=== PATIENT | female | born 1945 | race Caucasian/White ===

== ENCOUNTER 2022-04-17 10:49 | Outpatient (CLI) | payer MEDICARE, BC, SELFPAY | END 2022-04-17 10:50 | disposition home or self-care (01) | LOC: NUTRITION 10:52 | PROVIDERS: PCP Family Medicine; Visit Provider Family Medicine | DX: E66.9 Obesity, unspecified (principal); Z71.3 Dietary counseling and surveillance | CPT/HCPCS: 99211 ==

== ENCOUNTER 2022-05-22 10:57 | Outpatient (CLI) | payer MEDICARE, BC, SELFPAY ==
[2022-05-22 12:07] VITALS: BMI 34.0
== END 2022-05-22 10:58 | disposition home or self-care (01) ==
LOC: NUTRITION 10:59
PROVIDERS: PCP Family Medicine
DX: E66.9 Obesity, unspecified (principal); Z71.3 Dietary counseling and surveillance
CPT/HCPCS: 99211

== ENCOUNTER 2022-06-26 10:49 | Outpatient (CLI) | payer MEDICARE, BC, SELFPAY ==
[2022-06-26 11:46] VITALS: BMI 34.2
== END 2022-06-26 10:50 | disposition home or self-care (01) ==
LOC: NUTRITION 10:49
PROVIDERS: PCP Family Medicine
DX: E66.9 Obesity, unspecified (principal); Z71.3 Dietary counseling and surveillance
CPT/HCPCS: 99211

== ENCOUNTER 2022-07-17 11:03 | Outpatient (CLI) | payer MEDICARE, BC, SELFPAY ==
[2022-07-17 11:40] VITALS: BMI 34.5
== END 2022-07-17 11:04 | disposition home or self-care (01) ==
LOC: NUTRITION 11:04
PROVIDERS: PCP Family Medicine
DX: E66.9 Obesity, unspecified (principal); Z71.3 Dietary counseling and surveillance
CPT/HCPCS: 99211

== ENCOUNTER 2022-08-14 10:50 | Outpatient (CLI) | payer MEDICARE, BC, SELFPAY ==
[2022-08-14 11:37] VITALS: BMI 33.6
== END 2022-08-14 10:51 | disposition home or self-care (01) ==
PROVIDERS: PCP Family Medicine; Visit Provider Dietitian, Registered
DX: E66.9 Obesity, unspecified (principal); Z71.3 Dietary counseling and surveillance
CPT/HCPCS: 99211

== ENCOUNTER 2022-10-17 10:48 | Outpatient (CLI) | payer MEDICARE, BC, SELFPAY ==
[2022-10-17 11:38] VITALS: BMI 34.3
== END 2022-10-17 10:49 | disposition home or self-care (01) ==
LOC: NUTRITION 10:50
PROVIDERS: PCP Family Medicine; Visit Provider Dietitian, Registered
DX: E66.9 Obesity, unspecified (principal); Z71.3 Dietary counseling and surveillance
CPT/HCPCS: 99211

== ENCOUNTER 2022-11-28 12:00 | Outpatient (CLI) | payer MEDICARE, BC, SELFPAY ==
[2022-11-28 14:06] LABS: Chloride* 105 mmol/L (96-114); Potassium* 4.7 mmol/L (3.6-5.1); Sodium* 142 mmol/L (135-149)
[2022-11-28 14:08] LABS: Creatinine* 0.6 mg/dL (0.5-1.5); Estimated Glomerular Filt Rate 92 ml/min
[2022-11-28 14:09] LABS: Blood Urea Nitrogen* 21 mg/dL (7-30); Carbon Dioxide* 31 mmol/L (20-32); Glucose* 104 mg/dL (60-115)
== END 2022-11-28 12:01 | disposition home or self-care (01) ==
PROVIDERS: PCP Family Medicine; Visit Provider Family Medicine
DX: I10 Essential (primary) hypertension (principal); E03.9 Hypothyroidism, unspecified
CPT/HCPCS: 80048; 84443

== ENCOUNTER 2023-03-26 08:50 | Outpatient (CLI) | payer MEDICARE, BC, SELFPAY ==
--- OUTSIDE RECORDS SUMMARY | 2023-03-26 08:53 | XMS_ITS | Continuity of Care Document ---
Author Name Unknown Organization Z [facility] Address [address] [place] [address] Phone Care Team Providers Care Life Skills Teacher Name Role Phone Unavailable Unavailable Unavailable Procedures Procedure Date Office/outpatient visit,[facility] 2007 Advance Directives Directive Yes / No Effective Date File Name No Information Encounters Encounter Description Practice Location Reason(s) For Visit Diagnoses Date Provider Providers Copied on Encounter Office/outpat ient visit,[facility], [facility], [address], [place], [address], [place] tel:[phone] [facility] [employer] No Information 5200 8 No Information Family History Family Member Type Diagnosis Age At Onset No Information Payers Payer name Insurance type Covered green party ID Authoriza tion(s) [facility] [id number] Social History Type Description Quantity Date Captured Comments Sex Female Smoking Status No Information Chief Complaint And Reason For Visit No Information Reason For Referral Reason For Referral No Information Plan Of Treatment Date Type Action Status No Information History Of Present Illness Encounter Date Complaint History Of Prese nt Illness No Information Functional Status Date Functional Assessmen t No Information Instructions Date Instruction Additional Infor mation No Information Assessments Type Assessment Date No Information Patient Care Teams Name Effective Dates (start - stop) Status Members No Information
[2023-03-26 09:49] VITALS: BMI 35.0
== END 2023-03-26 08:51 | disposition home or self-care (01) ==
LOC: NUTRITION 08:51
PROVIDERS: PCP Family Medicine; Visit Provider Family Medicine
DX: E66.9 Obesity, unspecified (principal); Z71.3 Dietary counseling and surveillance
CPT/HCPCS: 99211

== ENCOUNTER 2023-04-10 10:50 | Outpatient (CLI) | payer MEDICARE, BC, SELFPAY ==
--- OUTSIDE RECORDS SUMMARY | 2023-04-10 10:53 | XMS_ITS | Continuity of Care Document ---
Author Name Unknown Organization Z [facility] Address [address] [place] [address] Phone Care Team Providers Care Finishing Range Supervisor Name Role Phone Unavailable Unavailable Unavailable Procedures Procedure Date Office/outpatient visit,[facility] 2007 Advance Directives Directive Yes / No Effective Date File Name No Information Encounters Encounter Description Practice Location Reason(s) For Visit Diagnoses Date Provider Providers Copied on Encounter Office/outpat ient visit,[facility], [facility], [address], [place], [address], [place] tel:[phone] [facility] [employer] No Information 5200 8 No Information Family History Family Member Type Diagnosis Age At Onset No Information Payers Payer name Insurance type Covered constitution party ID Authoriza tion(s) [facility] [id number] Social History Type Description Quantity Date Captured [...]
[2023-04-10 14:09] VITALS: BMI 34.2
== END 2023-04-10 10:51 | disposition home or self-care (01) ==
LOC: NUTRITION 10:51
PROVIDERS: PCP Family Medicine; Visit Provider Family Medicine
DX: E66.9 Obesity, unspecified (principal); Z71.3 Dietary counseling and surveillance
CPT/HCPCS: 99211

== ENCOUNTER 2023-05-05 13:13 | Emergency (ER) | payer MEDICARE, BC, SELFPAY ==
[2023-05-05] VITALS (25 sets, daily range): BP systolic 95–150; BP diastolic 57–73; PULSE 59–79; RESP 16–17; TEMP 36.5; O2SAT 92–99; BMI 36.4
--- NOTE | 2023-05-05 13:53 | CRLHL7_ITS ---
For Patients: As a result of the Cures Act, medical imaging exams and procedure reports are released immediately into your electronic medical record. You may view this report before your referring provider. If you have questions, please contact your health care provider. INDICATION: Syncope. TECHNIQUE: Chest 2 views. COMPARISON: None. FINDINGS: Cardiovascular and mediastinum: Cardiomediastinal silhouette is within normal limits Lungs and pleural spaces: Lungs are clear. No sign of pleural effusion. No pneumothorax. Bones and soft tissues: Unremarkable for age. IMPRESSION: No acute or significant findings. Dictated by Bessie Sunshine MD @ 05/05/2023 3:42:38 PM (Electronically Signed)
--- NOTE | 2023-05-05 13:54 | CRLHL7_ITS ---
For Patients: As a result of the Century Cures Act, medical imaging exams and procedure reports are released immediately into your electronic medical record. You may view this report before your referring provider. If you have questions, please contact your health care provider. INDICATION: Fall, unsure if hit head TECHNIQUE: Noncontrast axial CT of the head. Coronal and sagittal reformats. Bone and soft tissue algorithms. COMPARISON: No relevant comparison studies available at this institution. FINDINGS: Bony calvarium appears grossly intact. No acute intracranial hemorrhage or abnormal extra-axial fluid collection identified. Partially calcified extra-axial structures are noted along the superior right parietal convexity (8 x 12 mm, series 6/), and right parietal falx (7 x 13 mm, series 6/59), most compatible with small meningiomas. Mild subjacent mass effect without parenchymal edema. No midline shift, hydrocephalus, or herniation. Scattered dural calcifications are noted elsewhere. Mild generalized cerebral volume loss. Cano-white matter differentiation is grossly maintained. White matter attenuation is unremarkable. Midline structures appear within normal limits. Scattered calcific plaquing at the carotid siphons. Mucosal thickening and lobulated dense debris within the left maxillary sinus with chronic osteitis changes. No paranasal sinus air-fluid level. Clear mastoid air cells. Unremarkable orbits. IMPRESSION: 1. No evidence of skull fracture or acute intracranial hemorrhage. 2. Mild generalized cerebral volume loss. 3. Small presumed partially calcified meningiomas at the superior right parietal convexity and right parietal falx. 4. 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 Please note that all CT scans at this facility use dose modulation, iterative reconstruction, and/or weight-based dosing when appropriate to reduce radiation dose to as low as reasonably achievable. Dictated by Nubia Delgado MD @ 05/05/2023 3:31:34 PM (Electronically Signed)
--- NOTE | 2023-05-05 13:54 | ED.GENADULT ---
HPI - General Adult General Time Seen by Provider: 13:55 Date Seen: 05/05/23 Chief complaint: Chest Pain Stated complaint: Fainting episode Time Seen by Provider: 05/05/23 13:46 Source: patient Mode of arrival: ambulatory Limitations: no limitations History of Present Illness HPI narrative: Patient is a 77-year-old female with history of hypothyroidism breast cancer removed 2 years ago status post lumpectomy, hypertension presents emergency department after a near syncope event. She states she has any denominational function she drink less water bottle to get stuck in her chest. She denies states vision started to go dark and she slowly fluids the ground. She states she does not think she completely blacked out because she remembers her friends coming over to help her. She still thinks she hit her head but cannot say for certain. States she does know she has had increased thirst or past day but did not eat or drink much yesterday. She has been drinking even more water today today with still feels always thirsty. Denies any polyuria or dysuria. Denies chest pain, shortness of breath, abdominal pain, headache, vision changes, weakness, numbness. States she no longer feels lightheaded was just states she does not feel like herself at this time. Has not had any fevers or chills. She does states she eat and drink more of the denominational function after this occurred and she now feels a get stuck in her throat again. Friend's tendency to come to emergency department to be checked and she did drive herself. Related Data Home Medications Medication Instructions Recorded Confirmed Cpap inhalation 11/26/22 02/27/23 anastrozole 1 mg tablet 1 mg PO DAILY 11/26/22 05/05/23 cholecalciferol (vitamin D3) 25 25 mcg PO QDAY 11/28/22 05/05/23 mcg (1,000 unit) tablet fexofenadine 60 mg tablet 60 mg PO BID PRN 11/28/22 05/05/23 Previous Rx's Medication Instructions Recorded atorvastatin 20 mg tablet 20 mg PO QDAY #90 tabs 05/20/22 escitalopram oxalate 20 mg tablet 20 mg PO QDAY #90 tabs 05/20/22 levothyroxine 175 mcg tablet 175 mcg PO QDAY #90 tabs 05/20/22 fluticasone 250 mcg-salmeterol 50 1 inh inhalation BID #3 ea 11/04/22 mcg/dose blistr powdr for inhalation lisinopril 20 mg tablet 20 mg PO QDAY #90 tabs 02/05/23 triamcinolone acetonide 0.1 % 1 applic topical BID #60 mL 02/27/23 lotion Allergies Allergy/AdvReac Type Severity Reaction Status Date / Time codeine Allergy Severe respiratory Verified 05/05/23 13:34 difficulty Review of Systems Status of ROS: Reports: 10 or more systems reviewed and unremarkable except as noted in History and below [facility] Medical History (Updated 05/05/23 @ 16:55 by Gavin Hughes DO) Vitamin D deficiency (11/27/08) ?E55.9 - Vitamin D deficiency, unspecified (ICD-10) Urge incontinence of urine (07/22/07) ?N39.41 - Urge incontinence (ICD-10) Obstructive sleep apnea syndrome (01/13/12) ?G47.33 - Obstructive sleep apnea (adult) (pediatric) (ICD-10) Obesity (01/13/12) ?E66.9 - Obesity, unspecified (ICD-10) Moderate persistent asthma ?J45.40 - Moderate persistent asthma, uncomplicated (ICD-10) Malignant neoplasm of upper-outer quadrant of left breast in female, estrogen receptor positive (07/02/21) ?C50.412 - Malignant neoplasm of upper-outer quadrant of left female breast (ICD-10) ?Z17.0 - Estrogen receptor positive status [ER+] (ICD-10) Irritable bowel syndrome (01/13/12) ?K58.9 - Irritable bowel syndrome without diarrhea (ICD-10) Hypothyroidism (01/13/12) ?E03.9 - Hypothyroidism, unspecified (ICD-10) History of colonic polyps (12/05/06) ?Z86.010 - Personal history of colonic polyps (ICD-10) Hypertension ?I10 - Essential (primary) hypertension (ICD-10) Hyperlipidemia ?E78.5 - Hyperlipidemia, unspecified (ICD-10) Major depression ?F32.9 - Major depressive disorder, single episode, unspecified (ICD-10) Surgical History History of total knee replacement (2017) ?Z96.659 - Presence of unspecified artificial knee joint (ICD-10) History of sinus surgery (2018) ?Z98.890 - Other specified postprocedural states (ICD-10) History of lumpectomy of right breast ?Z98.890 - Other specified postprocedural states (ICD-10) History of lumpectomy of left breast ?Z98.890 - Other specified postprocedural states (ICD-10) History of knee surgery (01/13/12) ?Z98.890 - Other specified postprocedural states (ICD-10) History of hysterectomy (01/13/12) ?Z90.710 - Acquired absence of both cervix and uterus (ICD-10) History of cholecystectomy (01/13/12) ?Z90.49 - Acquired absence of other specified parts of digestive tract (ICD-10) History of bladder repair surgery (01/13/12) ?Z98.890 - Other specified postprocedural states (ICD-10) History of appendectomy (01/13/12) ?Z90.49 - Acquired absence of other specified parts of digestive tract (ICD-10) Family History Adelina Gehrig's disease Father Breast cancer Sister Social History Smoking Status: Never smoker Non-prescribed substance use: denies use Little interest or pleasure in doing things: not at all Feeling down, depressed, or hopeless: not at all Exam Narrative: Exam Narrative: Const: Well-nourished, Well-developed, in mild distress Eyes: PERRL, no conjunctival injection, and symmetrical lids ENMT: Atraumatic external nose and ears. Moist mucous membranes. Neck: Symmetric, trachea midline, No thyromegaly. CVS: RRR, No murmurs or gallops. Peripheral pulses 2+ and equal in all extremities RESP: Unlabored respiratory effort. Clear to auscultation bilaterally. GI: Nontender/Nondistended, No rebound or guarding. MSK:Extremities w/o deformity, Normal Active ROM Skin: Warm, Dry. No rashes or lesions. Neuro: Normal Muscle tone, No focal neurological deficits. Psych: Awake, Alert, & Oriented x3. Appropriate mood and affect. Const: Vital Signs, click to edit/add: Vital Signs - 24 hr 05/05/23 13:35 05/05/23 13:42 05/05/23 13:45 Temperature 97.7 F Pulse Rate 79 70 Respiratory Rate 16 Blood Pressure 139/65 Blood Pressure [Ri ght Upper Arm] 95/59 L Pulse Oximetry 96 96 94 Oxygen Delivery Me thod Room Air 05/05/23 13:46 05/05/23 13:47 05/05/23 14:00 Temperature Pulse Rate 73 74 70 Respiratory Rate Blood Pressure 132/63 Blood Pressure [Ri ght Upper Arm] Pulse Oximetry 94 93 92 Oxygen Delivery Me thod 05/05/23 14:01 05/05/23 14:15 05/05/23 14:30 Temperature Pulse Rate 71 68 72 Respiratory Rate Blood Pressure 115/59 L Blood Pressure [Ri ght Upper Arm] Pulse Oximetry 93 94 94 Oxygen Delivery Me thod 05/05/23 14:50 05/05/23 15:00 05/05/23 15:01 Temperature Pulse Rate 67 70 65 Respiratory Rate Blood Pressure 122/57 L Blood Pressure [Ri ght Upper Arm] Pulse Oximetry 96 97 96 Oxygen Delivery Me thod 05/05/23 15:02 05/05/23 15:15 05/05/23 15:30 Temperature Pulse Rate 66 63 66 Respiratory Rate 17 Blood Pressure Blood Pressure [Ri ght Upper Arm] Pulse Oximetry 96 95 97 Oxygen Delivery Me thod 05/05/23 15:31 05/05/23 15:45 05/05/23 16:00 Temperature Pulse Rate 62 62 67 Respiratory Rate Blood Pressure 110/63 Blood Pressure [Ri ght Upper Arm] Pulse Oximetry 98 95 95 Oxygen Delivery Me thod 05/05/23 16:01 05/05/23 16:15 05/05/23 16:30 Temperature Pulse Rate 65 60 59 L Respiratory Rate Blood Pressure 114/69 Blood Pressure [Ri ght Upper Arm] Pulse Oximetry 98 94 95 Oxygen Delivery Me thod 05/05/23 16:33 05/05/23 16:45 05/05/23 17:00 Temperature Pulse Rate 59 L 63 60 Respiratory Rate Blood Pressure 150/73 H Blood Pressure [Ri ght Upper Arm] Pulse Oximetry 95 98 98 Oxygen Delivery Me thod 05/05/23 17:01 Temperature Pulse Rate 60 Respiratory Rate Blood Pressure 145/73 H Blood Pressure [Ri ght Upper Arm] Pulse Oximetry 99 Oxygen Delivery Me thod Course Vital Signs Vital signs: Initial Vital Signs Temperature 97.7 F 05/05/23 13:35 Temperature Source Temporal Artery Scan 05/05/23 13:35 Pulse Rhythm Regular 05/05/23 13:35 Pulse Strength 3+ Normal 05/05/23 13:35 Respiratory Rate 16 05/05/23 13:35 Blood Pressure 95/59 L 05/05/23 13:35 Blood Pressure Mean 71 05/05/23 13:35 Blood Pressure Position Sitting 05/05/23 13:35 Pulse Oximetry 96 05/05/23 13:35 Oxygen Delivery Method Room Air 05/05/23 13:35 Vital Signs Temperature 97.7 F 05/05/23 13:35 Respiratory Rate 16 05/05/23 13:35 Blood Pressure 95/59 L 05/05/23 13:35 Pulse Oximetry 96 05/05/23 13:35 Oxygen Delivery Method Room Air 05/05/23 13:35 Temperature 97.7 F 05/05/23 13:35 Pulse Rate 60 05/05/23 17:01 Respiratory Rate 17 05/05/23 15:02 Blood Pressure 145/73 H 05/05/23 17:01 Pulse Oximetry 99 05/05/23 17:01 Oxygen Delivery Method Room Air 05/05/23 13:35 Medical Decision Making MDM Narrative Medical decision making narrative: Patient is an 7 year female presented emergency department after a syncopal event. She states while she was drinking some water she photic coughing throughout the she said she became lightheaded says she came close to passing out but does not think she passed out completely. She is not positive if she hit her head or not. States she quickly came back to felt normal after that. She did eat and drink again afterwards with no difficulty. She decided come to the emergency department to be evaluated. She states all this occurred roughly an hour prior to arrival. Her symptoms we will order a cardiac workup including CBC, CMP, troponin, EKG, chest x-ray. Also ordered a TSH, urinalysis, COVID/flu/RSV. Since she is unsure she had her head and neck were ordered head CT. She is having no cervical spine tenderness at this time and not believe a cervical CT is needed. He patient's lab work returned showing no concerning abnormalities. Repeat troponins was less than 0.01. EKG shows no concerning abnormalities. Hemoglobin appears to be at its baseline. Urinalysis shows no signs of infection. COVID/flu/RSV were all negative. Chest x-ray shows no acute abnormalities. Head CT showed no acute abnormalities. Is unclear what caused her symptoms. She does states she is feeling dehydrated shoulder L of lactated Ringer's was ordered. She says she feels less thirsty now and has been able to take oral fluids without issue other than the 1 episode. She is not short of breath and a pulmonary embolism was very unlikely at this time. Does not appear to be cardiac in nature with the 2 normal troponins and normal appearing EKG. She does not have any chest pain at this time. Electrolytes all look normal. Vital signs appear stable. I do not hear any murmurs. We will have were discharged home told to follow up primary care inspection of possibly seeing a brine maker for possible outpatient echocardiogram. She states she agrees and understands this plan Lab Data Labs: Lab Results 05/05/23 05/05/23 05/05/23 Range/Units 13:53 14:11 16:03 WBC 8.12 (4.50-11.00) K/uL RBC 3.97 L (4.00-5.20) m/uL Hgb 11.3 L (12.0-16.0) gm/dL Hct 35.3 (33.0-51.0) % MCV 89 (80-100) fL MCH 29 (26-34) pg MCHC 32 (32-36) gm/dL RDW Coeff of Meghann 13.3 (11.5-15.5) % Plt Count 271 (140-440) K/uL Neut % (Auto) 67.1 (42.0-72.0) % Lymph % (Auto) 19.5 L (20-44) % [place] % (Auto) 7.9 (0.0-11.0) % Eos % (Auto) 4.8 (0.0-7.0) % Baso % (Auto) 0.6 (0.0-3.0) % Neut # (Auto) 5.45 (1.7-7.0) K/uL Lymph # (Auto) 1.60 (0.90-2.90) K/uL [place] # (Auto) 0.60 (0.00-0.90) K/UL Eos # (Auto) 0.39 (0.00-0.50) K/uL Baso # (Auto) 0.05 (0.00-0.30) K/uL Abs Immat Gran (auto) 0.01 (0.00-0.30) K/uL Imm/Tot Granulo (auto) 0.1 % Sodium 139 (135-149) mmol/L Potassium 3.8 (3.6-5.1) mmol/L Chloride 105 (96-114) mmol/L Carbon Dioxide 25 (20-32) mmol/L BUN 24 (7-30) mg/dL Creatinine 0.9 (0.5-1.5) mg/dL Estimated Creat Clear 40.04 Estimated GFR 65 ml/min Glucose 146 H (60-115) mg/dL Calcium 8.7 (8.4-10.6) mg/dL Total Bilirubin 0.3 (0.1-1.5) mg/dL AST 39 H (12-35) U/L ALT 38 H (4-35) U/L Alkaline Phosphatase 71 (40-150) U/L Troponin I < 0.01 L < 0.01 L (0.01-0.04) ng/mL Total Protein 7.0 (6.0-8.3) g/dL Albumin 4.2 (3.3-5.0) g/dL TSH 0.294 (0.270-4.200) uIU/mL Urine Color Yellow (Yellow) Urine Appearance Clear (Clear) Urine pH 5.5 (5.0-8.5) Ur Specific [place] 1.015 (1.000-1.030) Urine Protein Negative (Negative) Urine Glucose (UA) Negative (Negative) Urine Ketones Negative (Negative) Urine Blood Negative (Negative) Urine Nitrite Negative (Negative) Urine Bilirubin Negative (Negative) Urine Urobilinogen 0.2 (0.2-1.0) Ur Leukocyte Esterase Negative (Negative) Urine RBC 0-2 (0-2) Urine WBC 0-2 (0-5) Ur Squamous Epith Cells None (None-Few) Urine Bacteria None (None) SARS-CoV-2 (PCR) Negative SARS-CoV-2 (Negative) Influenza Type A (PCR) Negative PCR FLU A (Negative) Influenza Type B (PCR) Negative PCR FLU B (Negative) RSV (PCR) Negative PCR RSV (Negative) ECG Data Attestation: I personally reviewed and interpreted this ECG as follows: (Normal sinus rhythm rate 72 beats per minute, normal intervals, normal axis, no ST or T-wave abnormalities.) Prior ECG tracings: not available for review Discharge Plan Discharge Clinical Impression: Near syncope, Dehydration Patient Disposition: Home, Self-Care Condition: Stable Instructions: Dehydration (ED), Near Syncope (ED) Additional Instructions: Is unclear what is the cause of your near syncopal event today. Could be secondary to dehydration I recommended drink large amounts of water. Also recommend he follow up with the primary care provider. Speak to them about being set up with a brine maker for possible outpatient echocardiogram to better evaluate your heart. Return for new or worsening symptoms Prescriptions: No Action triamcinolone acetonide 0.1 % lotion 1 applic topical BID Qty: 60 1RF anastrozole 1 mg tablet 1 mg PO DAILY Cpap inhalation fexofenadine 60 mg tablet 60 mg PO BID PRN cholecalciferol (vitamin D3) 25 mcg (1,000 unit) tablet 25 mcg PO QDAY lisinopril 20 mg tablet 20 mg PO QDAY Qty: 90 3RF levothyroxine 175 mcg tablet 175 mcg PO QDAY Qty: 90 2RF escitalopram oxalate 20 mg tablet 20 mg PO QDAY Qty: 90 3RF atorvastatin 20 mg tablet 20 mg PO QDAY Qty: 90 3RF fluticasone propion-salmeterol 250-50 mcg/dose blister with device 1 inh inhalation BID Qty: 3 3RF Follow Up/Referrals: Royce Moy MD [Primary Care Provider] - Stand Alone Forms: [employer] Info Instructions
--- OUTSIDE RECORDS SUMMARY | 2023-05-05 14:04 | XMS_ITS | Continuity of Care Document ---
Author Name Unknown Organization Z [facility] Address [address] [place] [address] Phone Care Team Providers Care Sports Photographer Name Role Phone Unavailable Unavailable Unavailable Procedures Procedure Date Office/outpatient visit,[facility] 2007 Advance Directives Directive Yes / No Effective Date File Name No Information Encounters Encounter Description Practice Location Reason(s) For Visit Diagnoses Date Provider Providers Copied on Encounter Office[facility]pat ient visit,[facility] [place] [place] [facility], [address], [place], [address], [place] tel:[phone] [facility] [employer] [facility] No Information 200 8 No Information Family History Family Member Type Diagnosis Age At Onset No Information Payers Payer name Insurance type Covered democrat ID Authoriza tion(s) [facility] [id number] Social History Type Description Quantity Date Captured Comments Sex Female Smoking Status No Information Chief Complaint And Reason For Visit No Information Reason For Referral Reason For Referral No Information History Of Present Illness Encounter Date Complaint History Of Prese nt Illness No Information Functional Status Date Functional Assessmen t No Information Instructions Date Instruction Additional Infor mation No Information Assessments Type Assessment Date No Information Patient Care Teams Name Effective Dates (start - stop) Status Members No Information
[2023-05-05] MEDS: LACTATED RINGERS 1000 ML 1,000 ML IV (14:15)
[2023-05-05 14:19] LABS: Basophils Absolute Auto 0.05 K/uL (0.00-0.30); Basophils Percent Auto 0.6 % (0.0-3.0); Eosinophils Absolute Auto 0.39 K/uL (0.00-0.50); Eosinophils Percent Auto 4.8 % (0.0-7.0); Hematocrit 35.3 % (33.0-51.0); Hemoglobin* 11.3 gm/dL (12.0-16.0); Immature Granulocytes Abs Auto 0.01 K/uL (0.00-0.30); Immature Granulocytes Pct Auto 0.1 %; Lymphocytes Percent Auto 19.5 % (20-44); Mean Corpuscular HGB Conc 32 gm/dL (32-36); Mean Corpuscular Hemoglobin 29 pg (26-34); Mean Corpuscular Volume 89 fL (80-100); Monocytes Percent Auto 7.9 % (0.0-11.0); Neutrophils Absolute Auto 5.45 K/uL (1.7-7.0); Neutrophils Percent Auto 67.1 % (42.0-72.0); Platelet Count* 271 K/uL (140-440); RDW Coefficient of Variation % 13.3 % (11.5-15.5); Red Blood Count 3.97 m/uL (4.00-5.20); White Blood Count* 8.12 K/uL (4.50-11.00)
[2023-05-05 14:24] LABS: Slide Review Reflex No
[2023-05-05 14:32] LABS: Albumin* 4.2 g/dL (3.3-5.0); Chloride* 105 mmol/L (96-114); Potassium* 3.8 mmol/L (3.6-5.1); Sodium* 139 mmol/L (135-149)
[2023-05-05 14:34] LABS: Bilirubin Total* 0.3 mg/dL (0.1-1.5); Carbon Dioxide* 25 mmol/L (20-32); Creatinine* 0.9 mg/dL (0.5-1.5); Est. Creatinine Clearance* 40.04; Estimated Glomerular Filt Rate 65 ml/min
[2023-05-05 14:35] LABS: Alanine Aminotransferase* 38 U/L (4-35); Alkaline Phosphatase* 71 U/L (40-150); Aspartate Amino Transferase* 39 U/L (12-35); Blood Urea Nitrogen* 24 mg/dL (7-30); Calcium* 8.7 mg/dL (8.4-10.6); Glucose* 146 mg/dL (60-115)
[2023-05-05 14:51] LABS: Troponin I* < 0.01 ng/mL (0.01-0.04)
[2023-05-05 15:00] LABS: PCR FLU A Negative PCR FLU A (Negative); PCR FLU B Negative PCR FLU B (Negative); PCR RSV Negative PCR RSV (Negative); SARS PCR* Negative SARS-CoV-2 (Negative)
--- NOTE | 2023-05-05 15:27 | ED.NURSE ---
Patient up to bathroom. Denies dizziness or lightheadedness, ambulates independently.
[2023-05-05 15:28] LABS: Appearance Urine Clear (Clear); Bilirubin Urine Negative (Negative); Blood Urine Negative (Negative); Color Urine Yellow (Yellow); Glucose Urine Negative (Negative); Ketones Urine Negative (Negative); Leukocyte Esterase Urine Negative (Negative); Nitrite Urine Negative (Negative); Protein Urine Negative (Negative); Specific Gravity Urine 1.015 (1.000-1.030); Urobilinogen Urine 0.2 (0.2-1.0); pH Urine 5.5 (5.0-8.5)
[2023-05-05 15:35] LABS: RBC Urine 0-2 (0-2); WBC Urine 0-2 (0-5)
[2023-05-05 16:32] LABS: TSH With Reflex to FT4* 0.294 uIU/mL (0.270-4.200)
[2023-05-05 16:37] LABS: Troponin I* < 0.01 ng/mL (0.01-0.04)
== END 2023-05-05 17:32 | disposition home or self-care (01) ==
PROVIDERS: Emergency Provider Student in an Organized Health Care Education/Training Program; PCP Family Medicine
DX: R55 Syncope and collapse (principal); E86.0 Dehydration
CPT/HCPCS: 36415; 70450; 71046; 80053; 81001; 84443; 84484; 85025; 87631; 93005; 99283; 99284; 99285; J7120

== ENCOUNTER 2023-06-12 10:54 | Outpatient (CLI) | payer MEDICARE, BC, SELFPAY ==
[2023-06-12 11:36] VITALS: BMI 35.2
== END 2023-06-12 10:55 | disposition home or self-care (01) ==
LOC: NUTRITION 10:58
PROVIDERS: PCP Family Medicine; Visit Provider Family Medicine
DX: R63.5 Abnormal weight gain (principal); Z71.3 Dietary counseling and surveillance
CPT/HCPCS: 99211

== ENCOUNTER 2023-06-25 10:22 | Outpatient (CLI) | payer MEDICARE, BC, SELFPAY ==
--- OUTSIDE RECORDS SUMMARY | 2023-06-25 10:24 | XMS_ITS | Continuity of Care Document ---
Author Name Unknown Organization Z [facility] Address [address] [place] [address] Phone Care Team Providers Care Automotive Service Professional Name Role Phone Unavailable Unavailable Unavailable Procedures Procedure Date Office/outpatient visit,[facility] 2007 Advance Directives Directive Yes / No Effective Date File Name No Information Encounters Encounter Description Practice Location Reason(s) For Visit Diagnoses Date Provider Providers Copied on Encounter Office/outpat ient visit,[facility], [facility], [address], [place], [address], [place] tel:[phone] [facility] [employer] [facility] No Information 200 8 No Information Family History Family Member Type Diagnosis Age At Onset No Information Payers Payer name Insurance type Covered democrat ID Authoriza tion(s) [facility] [id number] Social History Type Description Quantity Date Captured [...]
[2023-06-25 11:21] VITALS: BMI 34.7
== END 2023-06-25 10:23 | disposition home or self-care (01) ==
PROVIDERS: PCP Family Medicine; Visit Provider Dietitian, Registered
DX: E66.9 Obesity, unspecified (principal); Z71.3 Dietary counseling and surveillance
CPT/HCPCS: 99211

== ENCOUNTER 2023-07-16 10:20 | Outpatient (CLI) | payer MEDICARE, BC, SELFPAY ==
--- OUTSIDE RECORDS SUMMARY | 2023-07-16 10:22 | XMS_ITS | Continuity of Care Document ---
Author Name Unknown Organization Z [facility] Address [address] [place] [address] Phone Care Team Providers Care Transitional Care Nurse Name Role Phone Unavailable Unavailable Unavailable Procedures Procedure Date Office/outpatient visit,[facility] 2007 Advance Directives Directive Yes / No Effective Date File Name No Information Encounters Encounter Description Practice Location Reason(s) For Visit Diagnoses Date Provider Providers Copied on Encounter Office/outpat ient visit,[facility] [place] [facility], [address], [place], [address], [place] tel:[phone] [facility] [employer] [facility] No Information 200 8 No Information Family History Family Member Type Diagnosis Age At Onset No Information Payers Payer name Insurance type Covered alliance party ID Authoriza tion(s) [facility] [id number] Social History Type Description Quantity Date Captured [...]
[2023-07-16 10:59] VITALS: BMI 34.0
== END 2023-07-16 10:21 | disposition home or self-care (01) ==
LOC: NUTRITION 10:21
PROVIDERS: PCP Family Medicine; Visit Provider Dietitian, Registered
DX: E66.9 Obesity, unspecified (principal); Z71.3 Dietary counseling and surveillance
CPT/HCPCS: 99211

== ENCOUNTER 2023-08-06 10:23 | Outpatient (CLI) | payer MEDICARE, BC, SELFPAY ==
--- OUTSIDE RECORDS SUMMARY | 2023-08-06 10:26 | XMS_ITS | Continuity of Care Document ---
Author Name Unknown Organization Z [facility] Address [address] [place] [address] Phone Care Team Providers Care Medical Cash Poster Name Role Phone Unavailable Unavailable Unavailable Procedures Procedure Date Office/outpatient visit,[facility] 2007 Advance Directives Directive Yes / No Effective Date File Name No Information Encounters Encounter Description Practice Location Reason(s) For Visit Diagnoses Date Provider Providers Copied on Encounter Office/outpat ient visit,[facility], [facility], [address], [place], [address], [place] tel:[phone] [facility] No Information 200 8 No Information Family History Family Member Type Diagnosis Age At Onset No Information Payers Payer name Insurance type Covered democrat ID Authoriza tion(s) [facility] [id number] Social History Type Description Quantity Date Captured [...]
[2023-08-06 12:02] VITALS: BMI 33.9
== END 2023-08-06 10:24 | disposition home or self-care (01) ==
PROVIDERS: PCP Family Medicine; Visit Provider Dietitian, Registered
DX: E66.9 Obesity, unspecified (principal); Z71.3 Dietary counseling and surveillance
CPT/HCPCS: 99211

== ENCOUNTER 2023-08-20 10:29 | Outpatient (CLI) | payer MEDICARE, BC, SELFPAY ==
--- OUTSIDE RECORDS SUMMARY | 2023-08-20 10:33 | XMS_ITS | Continuity of Care Document ---
Author Name Unknown Organization Z [facility] Address [address] [place] [address] Phone Care Team Providers Care Strategic Marketing Associate Name Role Phone Unavailable Unavailable Unavailable Procedures Procedure Date Office/outpatient visit,[facility] 2007 Advance Directives Directive Yes / No Effective Date File Name No Information Encounters Encounter Description Practice Location Reason(s) For Visit Diagnoses Date Provider Providers Copied on Encounter Office/outpat ient visit,[facility], [facility], [address], [place], [address], [place] tel:[phone] [facility] [employer] [facility] No Information 200 8 No Information Family History Family Member Type Diagnosis Age At Onset No Information Payers Payer name Insurance type Covered democrat ID Authoriza tion(s) [facility] [id number] Social History Type Description Quantity Date Captured [...]
[2023-08-20 11:40] VITALS: BMI 34.4
== END 2023-08-20 10:30 | disposition home or self-care (01) ==
LOC: NUTRITION 10:30
PROVIDERS: PCP Family Medicine; Visit Provider Dietitian, Registered
DX: E66.9 Obesity, unspecified (principal); Z71.3 Dietary counseling and surveillance
CPT/HCPCS: 99211

== ENCOUNTER 2023-09-10 10:23 | Outpatient (CLI) | payer MEDICARE, BC, SELFPAY ==
--- OUTSIDE RECORDS SUMMARY | 2023-09-10 10:24 | XMS_ITS | Continuity of Care Document ---
Author Name Unknown Organization Z [facility] Address [address] [place] [address] Phone Care Team Providers Care Bi Application Developer Name Role Phone Unavailable Unavailable Unavailable Procedures Procedure Date Office/outpatient visit,[facility] 2007 Advance Directives Directive Yes / No Effective Date File Name No Information Encounters Encounter Description Practice Location Reason(s) For Visit Diagnoses Date Provider Providers Copied on Encounter [facility], [address], [place], [address], [place] tel:[phone] [facility] [employer] [facility] No Information 200 8 No Information Family History Family Member Type Diagnosis Age At Onset No Information Payers Payer name Insurance type Covered constitution party ID Authoriza tion(s) [facility] [id number] Social History Type Description Quantity Date Captured [...]
[2023-09-10 11:15] VITALS: BMI 34.0
== END 2023-09-10 10:24 | disposition home or self-care (01) ==
LOC: NUTRITION 10:23
PROVIDERS: PCP Family Medicine; Visit Provider Family Medicine
DX: Z68.38 Body mass index [BMI] 38.0-38.9, adult (principal); E66.8 Other obesity
CPT/HCPCS: 99211

== ENCOUNTER 2023-10-08 10:20 | Outpatient (CLI) | payer MEDICARE, BC, SELFPAY ==
--- OUTSIDE RECORDS SUMMARY | 2023-10-08 10:22 | XMS_ITS | Continuity of Care Document ---
Author Name Unknown Organization Z [facility] Address [address] [place] [address] Phone Care Team Providers Care Olericulture Professor Name Role Phone Unavailable Unavailable Unavailable Procedures Procedure Date Office/outpatient visit,[facility] 2007 Advance Directives Directive Yes / No Effective Date File Name No Information Encounters Encounter Description Practice Location Reason(s) For Visit Diagnoses Date Provider Providers Copied on Encounter Office/outpat ient visit,[facility], [facility], [address], [place], [address], [place] tel:[phone] [facility] [employer] [facility] No Information 200 8 No Information Family History Family Member Type Diagnosis Age At Onset No Information Payers Payer name Insurance type Covered republican ID Authoriza tion(s) [facility] [id number] Social History Type Description Quantity Date Captured [...]
[2023-10-08 11:14] VITALS: BMI 34.0
== END 2023-10-08 10:21 | disposition home or self-care (01) ==
LOC: NUTRITION 10:21
PROVIDERS: PCP Family Medicine; Visit Provider Family Medicine
DX: E66.9 Obesity, unspecified (principal); Z71.3 Dietary counseling and surveillance
CPT/HCPCS: G0463

== ENCOUNTER 2023-10-30 10:23 | Outpatient (CLI) | payer MEDICARE, BC, SELFPAY ==
--- OUTSIDE RECORDS SUMMARY | 2023-10-30 10:26 | XMS_ITS | Continuity of Care Document ---
Author Name Unknown Organization Z [facility] Address [address] [place] [address] Phone Care Team Providers Care Magazine Hand Name Role Phone Unavailable Unavailable Unavailable Procedures Procedure Date Office/outpatient visit,[facility] 2007 Advance Directives Directive Yes / No Effective Date File Name No Information Encounters Encounter Description Practice Location Reason(s) For Visit Diagnoses Date Provider Providers Copied on Encounter Office/outpat ient visit,[facility], [facility], [address], [place], [address], [place] tel:[phone] [facility] [employer] [facility] No Information 200 8 No Information Family History Family Member Type Diagnosis Age At Onset No Information Payers Payer name Insurance type Covered libertarian ID Authoriza tion(s) [facility] [id number] Social History Type Description Quantity Date Captured [...]
--- OUTSIDE RECORDS SUMMARY | 2023-10-30 10:26 | XMS_ITS | Referral Summary ---
Author Name Unknown Organization [facility] Address [address] [place] [address] Care Team Providers Care Surveyor Name Role Phone Damir Powell MD Primary Care Provider Allergies Active Allergy Reactions Criticality Noted Date Comments Codeine Difficulty breathing 06/02/2016 Metoprolol 08/21/2016 Shortness of breath Medications Medication Sig Dispensed Refills Start Date End Date Status acetaminophen (TYLENOL) 325 MG tablet Take 325 mg by mouth as needed for mild pain 0 Active CycloSPORINE (RESTASIS OP) As directed 0 Active meloxicam (MOBIC) 7.5 MG tablet Take 7.5 mg by mouth daily 0 Active escitalopram (LEXAPRO) 20 MG tablet Take 20 mg by mouth daily 0 Active aspirin EC 81 MG tabletIndications:SOB (shortness of breath) Take 1 tablet (81 mg) by mouth daily 30 tablet 1 06/02/2016 Active levothyroxine (SYNTHROID) 150 MCG tablet Take 150 mcg by mouth daily 0 Active nebivolol (BYSTOLIC) 5 MG tabletIndications:Rodolfo ign essential hypertension Take 1 tablet (5 mg) by mouth daily 30 tablet 11 10/29/2016 Active mirabegron (MYRBETRIQ) 25 MG 24 hr tablet Take 25 mg by mouth daily 0 Active baclofen (LIORESAL) 10 MG tablet Take 10 mg by mouth 3 times daily 0 Active Vitamin D, Cholecalciferol, 1000 UNITS CAPS Take 4,000 Units by mouth daily 0 Active fish oil-omega-3 fatty acids 1000 MG capsule Take 1 g by mouth daily 0 Active calcium carbonate (OS-ARMANDO 500 MG [place]. CA) 500 MG tablet Take 500 mg by mouth daily 0 Active torsemide (DEMADEX) 10 MG tabletIndications:Rodolfo ign essential hypertension Take 1 tablet (10 mg) by mouth daily 14 tablet 0 01/27/2017 Active potassium chloride SA (K-DUR/KLOR-CON M) 10 MEQ CR tabletIndications:Rodolfo ign essential hypertension Take 1 tablet (10 mEq) by mouth daily 14 tablet 0 01/27/2017 Active atorvastatin (LIPITOR) 20 MG tabletIndications:Hyp erlipidemia LDL goal <100 Take 1 tablet (20 mg) by mouth daily 90 tablet 1 07/21/2017 Active Active Problems Problem Noted Date Diagnosed Date SOB (shortness of breath) 05/22/2016 Fatigue 05/22/2016 Anxiety Obstructive sleep apnea Hyperlipemia Hypothyroidism Obesity Immunizations Name Administration Dates Next Due COVID-19 MONOVALENT 12+ (Pfizer) 11/30/2020,02/2021 Social History Tobacco Use Types Packs/Day Years Used Date Smoking Tobacco: Never Alcohol Use Standard Drinks/Week Comments Yes 0 (1 standard drink = 0.6 oz pur e alcohol) rare Adolescent Education Answer Date Record ed Getting School Help Needed Not on file 07/19 Sex and Gender Information Value Date Recorded Sex Assigned at Female 11/06/2020 8:46 AM ROPE TWISTING MACHINE OPERATOR Gender Identity Female 11/06/2020 8:46 AM ROPE TWISTING MACHINE OPERATOR Sexual Orientation Not on file Last Filed Vital Signs Vital Sign Reading Time Taken Comments Blood Pressure 114/64 01/27/2017 2:14 PM CDT Pulse 50 01/27/2017 2:14 PM CDT Temperature - - Respiratory Rate - - Oxygen Saturation - - Inhaled Oxygen Concentration - - Weight 105.4 kg (232 lb 4.8 oz) 01/27/2017 2:14 PM CDT Height 165.1 cm (5' 5) 01/27/2017 2:14 PM CDT Body Mass Index 38.66 01/27/2017 2:14 PM CDT Plan of Treatment Not on file Care Teams Surveyor Relationship Specialty Start Date End Date Damir Powell MD [facility] [address] [place] [address] PCP - General Internal Medicine 06/02/16
--- OUTSIDE RECORDS SUMMARY | 2023-10-30 10:26 | XMS_ITS | Clinical Summary ---
Author Name Unknown Organization [facility] Address [place], [place] [address] Care Team Providers Care Warehouse Team Member Name Role Phone Kamilla Rodriguez RN, BSN Unavailable [phone] Royce Moy MD Primary Care Provider + Nam Samaniego MD Unavailable [phone] Allergies Active Allergy Reactions Criticality Noted Date Comments Codeine Shortness Of Breath 12/05/2006 Medications Medication Sig Dispensed Refills Start Date End Date Status levothyroxine (SYNTHROID) 200 mcg tablet Take 1 Tab by mouth once daily. 0 04/19/2013 Active escitalopram oxalate (LEXAPRO) 10 mg tablet Take 1 tablet by mouth once daily. 0 02/08/2019 Active RESTASIS 0.05 % ophthalmic emulsion Place 1 Drop into both eyes 2 times daily. 3 01/25/2019 Active atorvastatin (LIPITOR) 20 mg tablet 0 05/30/2021 Active Wixela Inhub 250-50 mcg/dose diskus inhaler 0 03/26/2021 Active naproxen sodium (Aleve) 220 mg cap Take by mouth. 0 2021 Ac tive diphenhydrAMINE-ac etaminophen 25-500 mg (Tylenol PM Extra Strength) 25-500 mg tablet Take 1 Tablet by mouth at bedtime if needed. Max acetaminophen dose: 4000mg in 24 hrs. 0 2021 Active LISINOPRIL ORAL Take 10 mg by mouth once daily. 0 Active triamcinolone (ARISTOCORT; KENALOG) 0.1 % creamIndications:R jose a and nonspecific skin eruption Apply topically to arms twice a day for 2 weeks then use only as needed for spots that did not resolve. 60 g 0 04/30/2022 Active anastrozole (ARIMIDEX) 1 mg tabletIndications: Malignant neoplasm of upper-outer quadrant of left breast in female, estrogen receptor positive (HC) TAKE 1 TABLET EVERY DAY 90 Tablet 3 01/23/2023 Active ammonium lactate 12% (LACHYDRIN) 12 % cream APPLY THIN LAYER TOPICALLY TO THE AFFECTED AREA ON NECK AND ARMS EVERY DAY AFTER A SHOWER 0 06/10/2023 Active CPAPIndications:OS A (obstructive sleep apnea) CPAP machine for home use at pressure 9 cmw, nasal mask x1/3month with nasal pillows x 2/mo 1 Each 11 08/06/2023 Active Active Problems Problem Noted Date Diagnosed Date Malignant neoplasm of upper- outer quadrant of left breast in female, estrogen receptor positive 07/02/2021 Cancer Staging:Clinical:Stage IA(cT1, cN0, cM0, G2, ER+, AZ+, HER2: Equivocal) - Signed by Bianka Aguilar MD on 07/02/2021 Pathologic stage from 08/20/2021:Stage IA(pT1c, pN0(sn), cM0, G2, ER+, AZ+, HER2: Equivocal) - Signed by Liz Salter PA on 08/20/2021 DIEGO 10/13/2016 AHI-11 2021 Vitamin D deficiency 11/27/2008 Urge incontinence 07/22/2007 Major depressive disorder, recurrent episode, un specified 06/14/2007 Osteoarthrosis, unspecified whether generalized or localized, lower leg 12/05/2006 Postsurgical hypothyroidism 12/05/2006 Personal history of colonic polyps 12/05/2006 Other and unspecified hyperlipidemia 12/05/2006 Obesity, unspecified 12/05/2006 Resolved Problems Problem Noted Date Diagnosed Date Resolved Date Unspecified sleep apnea 12/05/200611/2020 Encounters Date Type Department Care Team Description 09/14/[address] [place] [address] Joss Pang MD Follow Up 09/07/2023 10:30 AM DIMENSIONAL INSPECTOR Ancillary Procedure [facility] [address] [place] [address] 09/07/2023 Travel 08/06/2023 11:30 AM CDT Office Visit [facility] [address] [place] [address] Enrike Alexander MD Sleep Follow-up 08/06/2023 Travel from Last 3 Months Immunizations Name Administration Dates Next Due Hepatitis A (Adult) 03/27/2005,08/21/2004 Influenza, IIV3 (Age >=3 years) 07/26/2008,07/22 Pneumococcal Poly,23-Valent (Pneumovax) 06/04/20 06 Td (Age >=7 Years) 01/11/2003 Yellow Fever 08/21/2004 Family History * Patient is adopted Medical History Relation Name Comments Diabetes Brother Alcohol/Drug Child Asthma Child Hyperlipidemia Child Psychiatric illness Child Alcohol/Drug Daughter Asthma Daughter Hyperlipidemia Daughter Psychiatric illness Daughter Psychiatric illness Father Cancer-breast No Family History Cancer-colon No Family History Cancer-ovarian No Family History Relation Name Status Comments Brother Child Daughter Father Social History Tobacco Use Types Packs/Day Years Used Date Smoking Tobacco: Never Smokeless Tobacco: Never Tobacco Cessation:Counseling Given: Yes Alcohol Use Standard Drinks/Week Comments Yes 0 (1 standard drink = 0.6 oz pur e alcohol) occasional 1-2 times monthly Social Connections Answer Date Recorded Frequency of Communication with Friends and Fami ly Not on file 10/05/2021 Financial Resource Strain Answer Date R ecorded Difficulty of Paying Living Expenses Not on file 10/05/2021 Difficulty of Paying Living Expenses Not on file 10/05/2021 Sex and Gender Information Value Date Recorded Sex Assigned at Not on file Gender Identity Not on file Sexual Orientation Not on file Obstetrics History Last Filed Vital Signs Vital Sign Reading Time Taken Comments Blood Pressure 149/72 08/06/2023 11:25 AM CDT Pulse 67 08/06/2023 11:25 AM CDT Temperature 36.7 ??C (98.1 ??F) 06/24/2023 9:46 AM CD T Respiratory Rate 20 06/24/2023 9:46 AM CDT Oxygen Saturation 96% 08/06/2023 11:25 AM CDT Inhaled Oxygen Concentration - - Weight 95.3 kg (210 lb) 08/06/2023 11:25 AM CDT Height 162.6 cm (5' 4) 08/06/2023 11:25 AM CDT Body Mass Index 36.05 08/06/2023 11:25 AM CDT Plan of Treatment Upcoming Encounters Date Type Department Care Team (Late st Contact Info) Description 12/03/2023 10:00 AM DIMENSIONAL INSPECTOR Office Visit [facility] [address] [place] [address] Joss Pang MD [address] [place] [address] Health Maintenance Due Date Last Done Comments Tdap 1955 Depression screening for age 12+ 1956 Hepatitis C screening for ag e 18-79 1962 Zoster (shingles) series for age 50+ (1 of 2) 1963 Pneumococcal series for age 65+ (2 of 2 - PCV) 06/04/2007 06/04/2006 Medicare Wellness for age 65+ 2009 Tetanus booster 01/11/2013 01/11/2003 Influenza for age 65+ 06/05/2023 07/26/2008, 007 COVID-19 vaccine series ( season) 2023 06/27/2023, 07/31/2022, 05/09/2022, Additional history exists BMI (ht and wt on same day) for age 18+ 08/06/2024 08/06/2023, 06/24/2023, 06/03/2023, Additional history exists DEXA/DXA scan for age 65+ Completed 2022, 09/12/2021, 08/10/2008 Procedures Procedure Name Priority Date/Time Associated Diagnosis Comments XR DXA BONE DENSITY 2 SITES AXIAL Routine 09/07/2023 10:42 AM DIMENSIONAL INSPECTOR Malignant neoplasm of upper-outer quadrant of left breast in female, estrogen receptor positive (HC) from Last 3 Months Results * XR DXA BONE DENSITY 2 SITES AXIAL (09/07/2023 10:42 AM DIMENSIONAL INSPECTOR) Anatomical Region Laterality Modality Spine, HIPS, HIPL, HIPR Other Impressions 09/14/2023 7:47 AM DIMENSIONAL INSPECTOR Normal bone density. RECOMMENDATIONS: The National Osteoporosis Foundation recommends pharmacologic treatment for patients with T-scores of -2.5 or less, patients with prior history of fragility fractures, or patients with 10-year probability of greater than 3% at hips or greater than 20% of suffering major osteoporotic fractures. Recommend continued optimization of calcium and vitamin D intake through dietary means and/or supplementation and regular exercise. Repeat scan recommended in 3-5 years. Teri Busch PA-C [facility] 09/14/2023 Narrative 09/14/2023 7:47 AM DIMENSIONAL INSPECTOR For Patients: Results are automatically released to your [facility] ([employer]) account once available, in compliance with federal regulations. This means that you may see your results before your provider has had a chance to review them. Please allow 2-3 business days for your provider to comment on the results. XR DXA Bone Mineral Density (BMD) EXAM LOCATION: [address] [address] PATIENT NAME: Aura Wilson DATE OF : 1945 EXAM DATE: 09/07/2023 REQUESTING PROVIDER: Joss Pang MD GENDER AT : female HEIGHT: 5' 4 (08/06/2023) WEIGHT: ??210 lb (08/06/2023) MENOPAUSAL STATUS: Postmenopausal RACE/ETHNICITY: White RISK FACTORS: Aromatase Inhibitors (Arimidex, etc.) CURRENT MEDICATION FOR BONE LOSS: NONE INDICATION: malignant neoplasm of upper-outer quadrant of left breast in female, estrogen receptor positive COMPARISON DATE(S): ??2007 DXA scans are compared to prior studies for a patient only when the two (or more) studies were performed on the same scanner. It is not possible to compare data generated on one scanner to data from another because there are not standards in DXA equipment. This applies even if the two scanners are made by the same block chopper hand. PROCEDURE: Dual-energy x-ray absorptiometry performed with routine technique. Reporting is completed in the form of a T-score. The T-score represents the standard deviation from peak bone mass based on young healthy adult. A Z-score is used for diagnosis in premenopausal women, and for men under the age of 50. FINDINGS: RESULT LUMBAR SPINE L1 - L4(L3) BMD: 1.289 g/cm2 T-Score: + 0.9 Z-Score: + 1.6 Change from prior in 2007: ??Decrease 0.6%. RESULTS FEMUR Left femoral neck BMD: 0.954 g/cm2 T-Score: - 0.6 Z-Score: + 0.8 Change from prior in 2007: ??Decrease 15.4%. Right femoral neck BMD: 1.060 g/cm2 T-Score: + 0.2 Z-Score: + 1.6 Change from prior in 2007: ??Decrease 6.3%. Left hip BMD: 1.092 g/cm2 T-Score: + 0.7 Z-Score: + 1.9 Change from prior in 2007: ??Decrease 10.1%. Right hip BMD: 1.153 g/cm2 T-Score: + 1.2 Z-Score: + 2.3 Change from prior in 2007: ??Decrease 6.4%. WHO criteria: Normal: T-score at or above -1 SD Osteopenia: T-score between -1.1 and -2.4 SD Osteoporosis: T-score at or below -2.5 SD Joss Pang MD DEXA from Last 3 Months Advance Directives Latest Code Status on File Code Status Date Activated Date Inactivated Comments Full Code 08/09/2021 10:17 AM 08/09/2021 9:08 PM Question Answer Comments Code Status Discussion: Not Discussed Care Teams Warehouse Team Member Relationship Specialty Start Date End Date Royce Moy MD [address] [place] [address] PCP - General Family Practice 07/08/21 Kamilla Rodriguez, RN, BSN [address] [place] [address] Nurse Navigator Oncology 06/25/21 Nam Samaniego MD [address] [place] [address] Radiation Oncologist Internal Medicine 08/06/21
--- OUTSIDE RECORDS SUMMARY | 2023-10-30 10:26 | XMS_ITS | Clinical Summary ---
Author Name Unknown Organization [facility] Address [address] [place] [address] Care Team Providers Care Station Baggage Porter Name Role Phone Damir Powell MD Primary [...] 0 Active calcium carbonate (OS-ARMANDO 500 MG [place]. [place]) 500 MG tablet Take 500 mg [...] Next Due COVID-19 MONOVALENT 12+ (Pfizer) 11/30/2020,02/2021 Family History Medical History Relation Comments Depression Brother Diabetes Brother Bipolar Disorder Daughter Unknown/Adopted Mother Lymphoma Son Relation Status Comments Brother Alive Daughter Father Mother Son Alive Social History Tobacco Use Types Packs/Day Years Used Date Smoking Tobacco: Never Alcohol Use Standard Drinks/Week Comments Yes 0 (1 standard drink = 0.6 oz pur e alcohol) rare Adolescent Education Answer Date Record ed Getting School Help Needed Not on file 07/19 Sex and Gender Information Value Date Recorded Sex Assigned at Female 11/06/2020 8:46 AM RAIL MAINTENANCE WORKER Gender Identity Female 11/06/2020 8:46 AM RAIL MAINTENANCE WORKER Sexual Orientation Not on file Last Filed [...] 01/27/2017 2:14 PM CDT Plan of Treatment Health Maintenance Due Date Last Done Comments ADVANCE CARE PLANNING 1945 ANNUAL REVIEW OF HM ORDERS 1945 DEXA 1945 HEPATITIS C SCREENING 1962 RSV VACCINE ( & 60+) (1 - 1-dose 60+ series) 2004 FALL RISK ASSESSMENT 2009 MEDICARE ANNUAL WELLNESS VISIT 2009 DTAP/TDAP/TD IMMUNIZATION (1 - Tdap) 07/06/2012 07/05/2012, 01/11/2003 TSH W/FREE T4 REFLEX 11/20/2017 11/20/2016, 07/03/20 15 LIPID 08/21/2021 08/21/2016, 07/03/2015 COVID-19 Vaccine ( season) 2023 11/30/2020, 11/09/2020 INFLUENZA VACCINE (#1) 2023 0, 07/06/2019, 07/01/2018, Additional history exists PHQ-2 (once per calendar year) 2023 Pneumococcal Vaccine: 65+ Years Completed 07/03/2015, 08/11/2011, 06/04/2006 ZOSTER IMMUNIZATION Completed 06/25/2020, 04/19/2020, 07/11/2015 HPV IMMUNIZATION Aged Out No longer e ligible based on patient's age to complete this topic IPV IMMUNIZATION Aged Out No longer e ligible based on patient's age to complete this topic MENINGITIS IMMUNIZATION Aged Out No l onger eligible based on patient's age to complete this topic RSV MONOCLONAL ANTIBODY Aged Out No l onger eligible based on patient's age to complete this topic Care Teams Station Baggage Porter Relationship Specialty Start Date End Date Damir Powell MD [facility] [address] [place] [address] PCP - General Internal Medicine 06/02/16
== END 2023-10-30 10:24 | disposition home or self-care (01) ==
LOC: NUTRITION 10:24
PROVIDERS: PCP Family Medicine; Visit Provider Family Medicine
DX: Z68.38 Body mass index [BMI] 38.0-38.9, adult (principal); E66.9 Obesity, unspecified
CPT/HCPCS: G0463

== ENCOUNTER 2023-11-06 20:07 | Emergency (ER) | payer MEDICARE, BC, SELFPAY ==
[2023-11-06 20:15] VITALS: BP 179/80; PULSE 81; RESP 18; TEMP 36.6; O2SAT 97; BMI 36.7
--- NOTE | 2023-11-06 20:24 | CRLHL7_ITS ---
For Patients: As a result of the 21st Century Cures Act, medical imaging exams and procedure reports are released immediately into your electronic medical record. You may view this report before your referring provider. If you have questions, please contact your health care provider. Indication: Fall Technique: Noncontrast axial CT of the head, with coronal and sagittal reformats, bone and soft tissue algorithms. Noncontrast axial CT of the facial bones, with coronal and sagittal reformats. Comparison: CT head 05/05/2023, CT sinus 05/18/2019 Findings: Head: Mild generalized cerebral volume loss. Stable small presumed calcified meningiomas along the right parietal convexity and right posterior interhemispheric falx, with minimal subjacent mass effect but no evidence of parenchymal edema. No acute intracranial hemorrhage or abnormal extra-axial fluid collection. No midline shift, hydrocephalus, or herniation. Preserved donovan-white matter differentiation. Unremarkable white matter attenuation. Midline structures are unremarkable. Calcification cranial atherosclerotic plaquing. Bony calvarium appears grossly intact. Clear mastoid air cells. Face: Right frontal scalp hematoma. Nasal soft tissue swelling. Mildly comminuted, mildly displaced bilateral nasal bone fractures. Nasal septum appears relatively midline, without evidence of acute fracture or large septal hematoma. No suspicious soft tissue air or radiopaque foreign body identified. Atraumatic appearance orbits and orbital contents. No evidence for penetrating globe injury. The lenses are situated in their normally expected anterior locations. Near complete opacification of the left maxillary sinus, with similar dense internal lobulated debris and chronic osteitis changes. Near complete opacification of the left anterior ethmoid air cells, with minor mucosal thickening throughout the right anterior ethmoid air cells. The nasal septum is relatively midline. Impression: CT head: 1. Right frontal scalp hematoma, without evidence of skull fracture or acute intracranial hemorrhage. 2. Similar mild generalized cerebral volume loss and small presumed calcified meningiomas along the right parietal convexity and right posterior interhemispheric falx. CT face: 1. Nasal soft tissue swelling, with mildly comminuted, mildly displaced bilateral nasal bone fractures. 2. Near complete opacification of the left maxillary sinus and left anterior ethmoid air cells, progressed relative to 05/05/2023. Please note that all CT scans at this facility use dose modulation, iterative reconstruction, and/or weight-based dosing when appropriate to reduce radiation dose to as low as reasonably achievable. Dictated by Nubia Delgado MD @ 11/06/2023 9:50:21 PM (Electronically Signed)
--- OUTSIDE RECORDS SUMMARY | 2023-11-06 20:35 | XMS_ITS | Continuity of Care Document ---
Author Name Unknown Organization [facility] Address [address] [place] [address] Phone Care Team Providers Care Air Purifier Servicer Name Role Phone Unavailable Unavailable Unavailable Procedures Procedure Date Office/outpatient visit,[facility] 2007 Advance Directives Directive Yes / No Effective Date File Name No Information Encounters Encounter Description Practice Location Reason(s) For Visit Diagnoses Date Provider Providers Copied on Encounter Office/outpat ient [place] [facility] [place] [facility], [address], [place], [address], [place] tel:[phone] [facility] No Information 200 8 No Information Family History Family Member Type Diagnosis Age At Onset No Information Payers Payer name Insurance type Covered constitution party ID Authoriza tion(s) [facility] [id number] Social History Type Description Quantity Date Captured [...]
--- OUTSIDE RECORDS SUMMARY | 2023-11-06 20:36 | XMS_ITS | Clinical Summary ---
Author Name Unknown Organization [facility] Address [address] [place] [address] Care Team Providers Care Wallpaper Installer Name Role Phone Damir Powell MD Primary [...] 0 Active calcium carbonate (OS-ARMANDO 500 MG [place]. [place]) 500 MG tablet Take 500 mg [...] Sex Assigned at Female 11/06/2020 8:46 AM INSTRUCTOR DRAMATIC ARTS Gender Identity Female 11/06/2020 8:46 AM INSTRUCTOR DRAMATIC ARTS Sexual Orientation Not on file Last Filed [...] age to complete this topic Care Teams Wallpaper Installer Relationship Specialty Start Date End Date Damir Powell MD [facility] [address] [place] [address] PCP - General Internal Medicine 06/02/16
--- OUTSIDE RECORDS SUMMARY | 2023-11-06 20:36 | XMS_ITS | Referral Summary ---
Author Name Unknown Organization [facility] Address [address] [place] [address] Care Team Providers Care Threading Machine Tender Name Role Phone Damir Powell MD Primary [...] 0 Active calcium carbonate (OS-ARMANDO 500 MG [place]. [place]) 500 MG tablet Take 500 mg [...] Sex Assigned at Female 11/06/2020 8:46 AM LCAC RADAR OPERATOR/NAVIGATOR Gender Identity Female 11/06/2020 8:46 AM LCAC RADAR OPERATOR/NAVIGATOR Sexual Orientation Not on file Last Filed [...] of Treatment Not on file Care Teams Threading Machine Tender Relationship Specialty Start Date End Date Damir Powell MD [facility] [address] [place] [address] PCP - General Internal Medicine 06/02/16
--- OUTSIDE RECORDS SUMMARY | 2023-11-06 20:36 | XMS_ITS | Clinical Summary ---
Author Name Unknown Organization [facility] Address [place], [place] [address] Care Team Providers Care Artillery Specialist Name Role Phone Kamilla Rodriguez RN, BSN Unavailable [phone] Royce Moy MD Primary Care Provider + Nam Samaniego MD Unavailable [phone] Allergies Active Allergy Reactions Criticality Noted Date [...] Cancer Staging:Clinical:Stage IA(cT1, cN0, cM0, G2, ER+, SC+, HER2: Equivocal) - Signed by Bianka Aguilar MD on 07/02/2021 Pathologic stage from 08/20/2021:Stage IA(pT1c, pN0(sn), cM0, G2, ER+, SC+, HER2: Equivocal) - Signed by Liz Salter [...] Type Department Care Team Description 09/14/[address] [place] [address] Joss Pang MD Follow Up 09/07/2023 10:30 AM CAST SHELL GRINDER Ancillary Procedure [facility] [address] [place] [address] 09/07/2023 Travel 08/06/2023 11:30 AM CDT Office Visit [facility] [address] [place] [address] Enrike Alexander MD Sleep Follow-up 08/06/2023 Travel [...] st Contact Info) Description 12/03/2023 10:00 AM CAST SHELL GRINDER Office Visit [facility] [address] [place] [address] Joss Pang MD [address] [place] [address] Health Maintenance Due Date Last [...] 2 SITES AXIAL Routine 09/07/2023 10:42 AM CAST SHELL GRINDER Malignant neoplasm of upper-outer quadrant of left breast in female, estrogen receptor positive (HC) from Last 3 Months Results * XR DXA BONE DENSITY 2 SITES AXIAL (09/07/2023 10:42 AM CAST SHELL GRINDER) Anatomical Region Laterality Modality Spine, HIPS, HIPL, HIPR Other Impressions 09/14/2023 7:47 AM CAST SHELL GRINDER Normal bone density. RECOMMENDATIONS: The National Osteoporosis [...] recommended in 3-5 years. Teri Busch PA-C [facility] 09/14/2023 Narrative 09/14/2023 7:47 AM CAST SHELL GRINDER For Patients: Results are automatically released to your [facility] ([employer]) account once available, in compliance with federal regulations. This means that you may see your results before your provider has had a chance to review them. Please allow 2-3 business days for your provider to comment on the results. XR DXA Bone Mineral Density (BMD) EXAM LOCATION: [address] [address] PATIENT NAME: Aura Wilson DATE OF : 1945 EXAM DATE: 09/07/2023 REQUESTING PROVIDER: Joss aPng MD GENDER AT : female HEIGHT: 5' [...] two scanners are made by the same radiological technician. PROCEDURE: Dual-energy x-ray absorptiometry performed with routine [...] Code Status Discussion: Not Discussed Care Teams Artillery Specialist Relationship Specialty Start Date End Date Royce Moy MD [address] [place] [address] PCP - General Family Practice 07/08/21 Kamilla Rodriguez, RN, BSN [address] [place] [address] Nurse Navigator Oncology 06/25/21 Nam Samaniego MD [address] [place] [address] Radiation Oncologist Internal Medicine 08/06/21
--- NOTE | 2023-11-06 20:43 | ED_ITS ---
HPI - General Adult General Chief complaint: Fall/Minor Trauma <Susie Martinez MD - Last Filed: 11/06/23 21:17> Stated complaint: fall, head and nose injury <Susie Martinez MD - Last Filed: 11/06/23 21:17> Time Seen by Provider: 11/06/23 20:11 <Susie Martinez MD - Last Filed: 11/06/23 21:17> History of Present Illness HPI narrative: 78-year-old female coming in today after a fall. She was walking her dog believe she tripped over the leash or something on the ground. She fell forward onto her knees outstretched hands and ultimately did hit her face on the ground. She is complaining of mild pain over the left knee, pain across the face specifically above the right eyebrow, across the bridge of the nose and the upper lip. She denies confusion, headache or blurry vision. She denies altered speech. She did not lose consciousness. She is not on blood thinner. <Susie Martinez MD - Last Filed: 11/06/23 21:17> Related Data Home medications: Home Medications Medication Instructions Recorded Confirmed Cpap inhalation 11/26/22 05/07/23 anastrozole 1 mg tablet 1 mg PO DAILY 11/26/22 05/07/23 cholecalciferol (vitamin D3) 25 25 mcg PO QDAY 11/28/22 05/07/23 mcg (1,000 unit) tablet fexofenadine 60 mg tablet 60 mg PO BID PRN 11/28/22 05/07/23 Previous Rx's Medication Instructions Recorded atorvastatin 20 mg tablet 20 mg PO QDAY #90 tabs 05/20/22 fluticasone 250 mcg-salmeterol 50 1 inh inhalation BID #3 ea 11/04/22 mcg/dose blistr powdr for inhalation triamcinolone acetonide 0.1 % 1 applic topical BID #60 mL 02/27/23 lotion levothyroxine 175 mcg tablet 175 mcg PO QDAY #90 tabs 06/10/23 escitalopram oxalate 20 mg tablet 20 mg PO QDAY #90 tabs 06/15/23 lisinopril 20 mg tablet 20 mg PO QDAY #90 tabs 08/20/23 <Susie Martinez MD - Last Filed: 02/02/24 21:17> Allergies/adverse reactions: Allergies Allergy/AdvReac Type Severity Reaction Status Date / Time codeine Allergy Severe respiratory Verified 05/07/23 08:29 difficulty <Susie Martinez MD - Last Filed: 11/06/23 21:17> Review of Systems Status of ROS: Reports: 10 or more systems reviewed and unremarkable except as noted in History and below <Susie Martinez MD - Last Filed: 11/06/23 21:17> [facility] Medical History: Medical History (Updated 11/06/23 @ 21:55 by Bharat Taveras MD) Vitamin D deficiency (11/27/08) ?E55.9 - Vitamin D deficiency, unspecified (ICD-10) Urge incontinence of urine (07/22/07) ?N39.41 - Urge incontinence (ICD-10) Obstructive sleep apnea syndrome (01/13/12) ?G47.33 - Obstructive sleep apnea (adult) (pediatric) (ICD-10) Obesity (01/13/12) ?E66.9 - Obesity, unspecified (ICD-10) Moderate persistent asthma ?J45.40 - Moderate persistent asthma, uncomplicated (ICD-10) Malignant neoplasm of upper-outer quadrant of left breast in female, estrogen receptor positive (07/02/21) ?C50.412 - Malignant neoplasm of upper-outer quadrant of left female breast (ICD-10) ?Z17.0 - Estrogen receptor positive status [ER+] (ICD-10) Irritable bowel syndrome (01/13/12) ?K58.9 - Irritable bowel syndrome without diarrhea (ICD-10) Hypothyroidism (01/13/12) ?E03.9 - Hypothyroidism, unspecified (ICD-10) History of colonic polyps (12/05/06) ?Z86.010 - Personal history of colonic polyps (ICD-10) Hypertension ?I10 - Essential (primary) hypertension (ICD-10) Hyperlipidemia ?E78.5 - Hyperlipidemia, unspecified (ICD-10) Major depression ?F32.9 - Major depressive disorder, single episode, unspecified (ICD-10) <Susie Martinez MD - Last Filed: 11/06/23 21:17> Surgical History: Surgical History History of total knee replacement (2018) ?Z96.659 - Presence of unspecified artificial knee joint (ICD-10) History of sinus surgery (2018) ?Z98.890 - Other specified postprocedural states (ICD-10) History of lumpectomy of right breast ?Z98.890 - Other specified postprocedural states (ICD-10) History of lumpectomy of left breast ?Z98.890 - Other specified postprocedural states (ICD-10) History of knee surgery (01/13/12) ?Z98.890 - Other specified postprocedural states (ICD-10) History of hysterectomy (01/13/12) ?Z90.710 - Acquired absence of both cervix and uterus (ICD-10) History of cholecystectomy (01/13/12) ?Z90.49 - Acquired absence of other specified parts of digestive tract (ICD- 10) History of bladder repair surgery (01/13/12) ?Z98.890 - Other specified postprocedural states (ICD-10) History of appendectomy (01/13/12) ?Z90.49 - Acquired absence of other specified parts of digestive tract (ICD- 10) <Susie Martinez MD - Last Filed: 11/06/23 21:17> Family History: Family History Adelina Gehrig's disease Father Breast cancer Sister <Susie Martinez MD - Last Filed: 11/06/23 21:17> Social History: Social History Smoking Status: Never smoker Second hand tobacco smoke exposure: No How often do you have a drink containing alcohol: never How often do you have six or more drinks on one occasion: Never AUDIT-C Alcohol total score: 0 Non-prescribed substance use: denies use Little interest or pleasure in doing things: several days Feeling down, depressed, or hopeless: several days <Susie Martinez MD - Last Filed: 11/06/23 21:17> Exam Narrative: Exam Narrative: Well-nourished well-developed patient in no acute distress. Alert and oriented x3. Answers questions appropriately. Mood and affect are appropriate. Thoughts are goal oriented and rational. No tangential or magical thinking noted. Patient speaks in full sentences without needing to catch her breath. Speech is not slurred or pressured. HEENT: Normocephalic delete. Pupils are equally round reactive to light. Extraocular muscles are intact without pain when moving her eyes. Conjunctivae are moist without any icterus noted. Moist mucous membranes. Posterior pharynx is normal. Neck is soft without any discomfort. She has full range of motion with flexion, extension, side bending and rotation without discomfort. Patient has abrasions across the front of the face including the top of the forehead down the nose and on the upper lip. She has a very superficial laceration above the low right eyebrow that penetrates into the dermis but does not penetrate through the dermis. There is no trauma to the inside of the mouth. There is no septal hematoma. The bridge of the nose is mildly crooked and swollen. She has tenderness to palpation across the forehead, nose and the upper lip. There are no lacerations to the buccal mucosa. Cardiovascular: Heart is regular rate and rhythm . Lungs: Clear to auscultation bilaterally. Abdomen: Soft and nontender nondistended with normal bowel sounds. Extremities: Bilateral lower extremities are without edema. She has a very superficial abrasion to the left anterior knee. Scar from previous TKA. Skin: Well perfused peer <Susie Martinez MD - Last Filed: 11/06/23 21:17> Const: Vital Signs, click to edit/add: Vital Signs - 24 hr 11/06/23 20:15 Temperature 97.9 F Pulse Rate [Pulse Oximeter] 81 Respiratory Rate 18 Blood Pressure [Ri ght Upper Arm] 179/80 H Pulse Oximetry 97 Oxygen Delivery Me thod Room Air <Susie Martinez MD - Last Filed: 11/06/23 21:17> Vital Signs, click to edit/add: Vital Signs - 24 hr 11/06/23 20:15 Temperature 97.9 F Pulse Rate [Pulse Oximeter] 81 Respiratory Rate 18 Blood Pressure [Ri ght Upper Arm] 179/80 H Pulse Oximetry 97 Oxygen Delivery Me thod Room Air <Bharat Taveras MD - Last Filed: 11/06/23 21:55> Course Course ED Course: Given her age and injuries, we did proceed with a head and facial CT. <Susie Martinez MD - Last Filed: 11/06/23 21:17> Reevaluation(s) Time of Reevaluation #2: 21:51 <Bharat Taveras MD - Last Filed: 11/06/23 21:55> Reevaluation #2: CT scan of the head independently interpreted by me does not demonstrate any acute intracranial findings, CT scan of the face independently interpreted by me with comminuted nondisplaced bilateral nasal bone fractures as well as op acification of the left maxillary sinus. Patient stable for discharge with outpatient follow-up, should follow-up with ENT for nasal fracture as well as ethmoid and maxillary sinus opacification which appears to be chronic but progressive. <Bharat Taveras MD - Last Filed: 11/06/23 21:55> Vital Signs Vital signs: Initial Vital Signs Temperature 97.9 F 11/06/23 20:15 Temperature Source Temporal Artery Scan 11/06/23 20:15 Pulse Rate 81 11/06/23 20:15 Respiratory Rate 18 11/06/23 20:15 Blood Pressure 179/80 H 11/06/23 20:15 Blood Pressure Mean 113 H 11/06/23 20:15 Blood Pressure Position Sitting 11/06/23 20:15 Pulse Oximetry 97 11/06/23 20:15 Oxygen Delivery Method Room Air 11/06/23 20:15 Vital Signs Temperature 97.9 F 11/06/23 20:15 Pulse Rate 81 11/06/23 20:15 Respiratory Rate 18 11/06/23 20:15 Blood Pressure 179/80 H 11/06/23 20:15 Pulse Oximetry 97 11/06/23 20:15 Oxygen Delivery Method Room Air 11/06/23 20:15 Temperature 97.9 F 11/06/23 20:15 Pulse Rate 81 11/06/23 20:15 Respiratory Rate 18 11/06/23 20:15 Blood Pressure 179/80 H 11/06/23 20:15 Pulse Oximetry 97 11/06/23 20:15 Oxygen Delivery Method Room Air 11/06/23 20:15 <Susie Martinez MD - Last Filed: 11/06/23 21:17> Initial Vital Signs Temperature 97.9 F 11/06/23 20:15 Temperature Source Temporal Artery Scan 11/06/23 20:15 Pulse Rate 81 11/06/23 20:15 Respiratory Rate 18 11/06/23 20:15 Blood Pressure 179/80 H 11/06/23 20:15 Blood Pressure Mean 113 H 11/06/23 20:15 Blood Pressure Position Sitting 11/06/23 20:15 Pulse Oximetry 97 11/06/23 20:15 Oxygen Delivery Method Room Air 11/06/23 20:15 Vital Signs Temperature 97.9 F 11/06/23 20:15 Pulse Rate 81 11/06/23 20:15 Respiratory Rate 18 11/06/23 20:15 Blood Pressure 179/80 H 11/06/23 20:15 Pulse Oximetry 97 11/06/23 20:15 Oxygen Delivery Method Room Air 11/06/23 20:15 Temperature 97.9 F 11/06/23 20:15 Pulse Rate 81 11/06/23 20:15 Respiratory Rate 18 11/06/23 20:15 Blood Pressure 179/80 H 11/06/23 20:15 Pulse Oximetry 97 11/06/23 20:15 Oxygen Delivery Method Room Air 11/06/23 20:15 <Bharat Taveras MD - Last Filed: 11/06/23 21:55> Discharge Plan Discharge Clinical Impression: Fall, Fracture of nasal bone <Susie Martinez MD - Last Filed: 11/06/23 21:17> Patient Disposition: Home, Self-Care <Susie Martinez MD - Last Filed: 11/06/23 21:17> Condition: Stable <Susie Martinez MD - Last Filed: 11/06/23 21:17> Instructions: Nasal Fracture (ED) <Susie Martinez MD - Last Filed: 11/06/23 21:17> Additional Instructions: Tylenol and ibuprofen as needed for pain Follow-up with ENT Dr. Sarabia (call [facility] at [phone] or [facility] [phone]) when your swelling has improved and also to discuss the finding in the maxillary sinus seen on CT scan <Susie Martinez MD - Last Filed: 11/06/23 21:17> Activity Level: No Restrictions <Susie Martinez MD - Last Filed: 11/06/23 21:17> No Restrictions <Bharat Taveras MD - Last Filed: 11/06/23 21:55> Discharge Diet: Regular <Susie Martinez MD - Last Filed: 11/06/23 21:17> Regular <Bharat Taveras MD - Last Filed: 11/06/23 21:55> Prescriptions: No Action triamcinolone acetonide 0.1 % lotion 1 applic topical BID Qty: 60 1RF anastrozole 1 mg tablet 1 mg PO DAILY Cpap inhalation fexofenadine 60 mg tablet 60 mg PO BID PRN cholecalciferol (vitamin D3) 25 mcg (1,000 unit) tablet 25 mcg PO QDAY atorvastatin 20 mg tablet 20 mg PO QDAY Qty: 90 3RF fluticasone propion-salmeterol 250-50 mcg/dose blister with device 1 inh inhalation BID Qty: 3 3RF levothyroxine 175 mcg tablet 175 mcg PO QDAY Qty: 90 3RF escitalopram oxalate 20 mg tablet 20 mg PO QDAY Qty: 90 1RF lisinopril 20 mg tablet 20 mg PO QDAY Qty: 90 3RF <Susie Martinez MD - Last Filed: 11/06/23 21:17> Follow Up/Referrals: Royce Moy MD [Primary Care Provider] - Perez Sarabia MD [Staff Physician] - <Susie Martinez MD - Last Filed: 11/06/23 21:17> [facility] <Susie Martinez MD - Last Filed: 11/06/23 21:17>
[2023-11-06 21:59] VITALS: BP 135/74; PULSE 79; RESP 18; TEMP 36.6; O2SAT 97
[2023-11-06 22:02] VITALS: BP 135/74; PULSE 79; RESP 18; TEMP 36.6
== END 2023-11-06 22:02 | disposition home or self-care (01) ==
PROVIDERS: Emergency Provider Family Medicine; PCP Family Medicine
DX: S02.2XXA Fracture of nasal bones, initial encounter for closed fracture (principal); W18.09XA Striking against other object with subsequent fall, initial encounter; Y93.K1 Activity, walking an animal; Y92.838 Other recreation area as the place of occurrence of the external cause
CPT/HCPCS: 70450; 70486; 99284

== ENCOUNTER 2023-11-19 10:24 | Outpatient (CLI) | payer MEDICARE, BC, SELFPAY ==
--- OUTSIDE RECORDS SUMMARY | 2023-11-19 10:28 | XMS_ITS | Referral Summary ---
Author Name Unknown Organization [facility] Address [address] [place] [address] Care Team Providers Care State Federal Relations Deputy Director Name Role Phone Damir Powell MD Primary [...] 0 Active calcium carbonate (OS-ARMANDO 500 MG [place]. [place]) 500 MG tablet Take 500 mg [...] Sex Assigned at Female 11/06/2020 8:46 AM CANNERY WORKER Gender Identity Female 11/06/2020 8:46 AM CANNERY WORKER Sexual Orientation Not on file Last [...] of Treatment Not on file Care Teams State Federal Relations Deputy Director Relationship Specialty Start Date End Date Damir Powell MD [facility] [address] [place] [address] PCP - General Internal Medicine 06/02/16
--- OUTSIDE RECORDS SUMMARY | 2023-11-19 10:28 | XMS_ITS | Clinical Summary ---
Author Name Unknown Organization [facility] Address [address] [place] [address] Care Team Providers Care Wool Classer Name Role Phone Damir Powell MD Primary [...] 0 Active calcium carbonate (OS-ARMANDO 500 MG [place]. [place]) 500 MG tablet Take 500 mg [...] Sex Assigned at Female 11/06/2020 8:46 AM PHYSICIAN ASST Gender Identity Female 11/06/2020 8:46 AM PHYSICIAN ASST Sexual Orientation Not on file Last Filed [...] W/FREE T4 REFLEX 11/20/2017 11/20/2016, 07/03/20 15 GLUCOSE 11/20/2019 11/20/2016, 07/03/2015 LIPID 08/21/2021 08/21/2016, 07/03/2015 COVID-19 Vaccine ( [...] age to complete this topic Care Teams Wool Classer Relationship Specialty Start Date End Date Damir Powell MD [facility] [address] [place] [address] PCP - General Internal Medicine 06/02/16
--- OUTSIDE RECORDS SUMMARY | 2023-11-19 10:28 | XMS_ITS | Clinical Summary ---
Author Name Unknown Organization [facility] Address [place], [place] [address] Care Team Providers Care Robotic Technician Name Role Phone Kamilla Rodriguez RN, BSN Unavailable [phone] Royce Moy MD Primary Care Provider + Nam Samaniego MD Unavailable [phone] Allergies Active Allergy Reactions Criticality Noted Date [...] Type Department Care Team Description 09/14/[address] [place] [address] Joss Pang MD Follow Up 09/07/2023 10:30 AM COUNTERINTELLIGENCE/HUMINT SPECIALIST Ancillary Procedure [facility] [address] [place] [address] 09/07/2023 Travel from Last 3 Months Immunizations Name [...] st Contact Info) Description 12/03/2023 10:00 AM COUNTERINTELLIGENCE/HUMINT SPECIALIST Office Visit [facility] [address] [place] [phone] Joss Pang MD [address] [place], [place] [id number] Health Maintenance Due Date Last Done Comments [...] 2 SITES AXIAL Routine 09/07/2023 10:42 AM COUNTERINTELLIGENCE/HUMINT SPECIALIST Malignant neoplasm of upper-outer quadrant of left breast in female, estrogen receptor positive (HC) from Last 3 Months Results * XR DXA BONE DENSITY 2 SITES AXIAL (09/07/2023 10:42 AM COUNTERINTELLIGENCE/HUMINT SPECIALIST) Anatomical Region Laterality Modality Spine, HIPS, HIPL, HIPR Other Impressions 09/14/2023 7:47 AM COUNTERINTELLIGENCE/HUMINT SPECIALIST Normal bone density. RECOMMENDATIONS: The National Osteoporosis [...] recommended in 3-5 years. Teri Busch PA-C [facility] 09/14/2023 Narrative 09/14/2023 7:47 AM COUNTERINTELLIGENCE/HUMINT SPECIALIST For Patients: Results are automatically released to your [facility] ([email or web address]) account once available, in compliance with federal regulations. This means that you may see your results before your provider has had a chance to review them. Please allow 2-3 business days for your provider to comment on the results. XR DXA Bone Mineral Density (BMD) EXAM LOCATION: [address] [address] PATIENT NAME: Aura Wilson DATE OF : [...] two scanners are made by the same cover seamer. PROCEDURE: Dual-energy x-ray absorptiometry performed with routine [...] Code Status Discussion: Not Discussed Care Teams Robotic Technician Relationship Specialty Start Date End Date Royce Moy MD [address] [place] [address] PCP - General Family Practice 07/08/21 Kamilla Rodriguez, RN, BSN [address] [place] [address] Nurse Navigator Oncology 06/25/21 Nam Samaniego MD [address] [place] [address] Radiation Oncologist Internal Medicine 08/06/21
--- OUTSIDE RECORDS SUMMARY | 2023-11-19 10:28 | XMS_ITS | Continuity of Care Document ---
Author Name Unknown Organization [facility] Address [address] [place] [address] Phone Care Team Providers Care Hr Director Name Role Phone Unavailable Unavailable Unavailable Procedures Procedure Date Office/outpatient visit,[facility] 2007 Advance Directives Directive Yes / No Effective Date File Name No Information Encounters Encounter Description Practice Location Reason(s) For Visit Diagnoses Date Provider Providers Copied on Encounter Office/outpat ient visit,[facility], [facility], [address], [place], [address], [place] tel:[phone] [facility] [employer] [facility] No Information 200 8 No Information Family History Family Member Type Diagnosis Age At Onset No Information Payers Payer name Insurance type Covered democrat ID Authoriza tion(s) [facility] [id number] Social History Type Description Quantity Date Captured [...]
== END 2023-11-19 10:25 | disposition home or self-care (01) ==
PROVIDERS: PCP Family Medicine; Visit Provider Dietitian, Registered
DX: E66.9 Obesity, unspecified (principal); Z71.3 Dietary counseling and surveillance
CPT/HCPCS: G0463

== ENCOUNTER 2023-12-17 09:06 | Outpatient (CLI) | payer MEDICARE, BC, SELFPAY ==
[2023-12-17 11:29] VITALS: BMI 34.0
== END 2023-12-17 09:07 | disposition home or self-care (01) ==
LOC: NUTRITION 09:08
PROVIDERS: PCP Family Medicine; Visit Provider Family Medicine
DX: Z68.38 Body mass index [BMI] 38.0-38.9, adult (principal)
CPT/HCPCS: G0463

== ENCOUNTER 2024-01-14 10:22 | Outpatient (CLI) | payer MEDICARE, BC, SELFPAY ==
--- OUTSIDE RECORDS SUMMARY | 2024-01-14 10:25 | XMS_ITS | Continuity of Care Document ---
Author Name Unknown Organization [facility] Address [address] [place] [address] Phone Care Team Providers Care Operating Engineer Apprentice Name Role Phone Unavailable Unavailable Unavailable Procedures Procedure Date Office/outpatient visit,[facility] 2007 Advance Directives Directive Yes / No Effective Date File Name No Information Encounters Encounter Description Practice Location Reason(s) For Visit Diagnoses Date Provider Providers Copied on Encounter Office/outpat ient visit,[facility], [facility], [address], [place], [address], [place] tel:[phone] [facility] [employer] [facility] No Information 200 8 No Information Family History Family Member Type Diagnosis Age At Onset No Information Payers Payer name Insurance type Covered democrat ID Authoriza tion(s) [facility] [id number] Social History Type Description Quantity Date Captured [...]
--- OUTSIDE RECORDS SUMMARY | 2024-01-14 10:25 | XMS_ITS | Clinical Summary ---
Author Name Unknown Organization [facility] Address [address] [place] [address] Care Team Providers Care Mutual Fund Sales Agent Name Role Phone Damir Powell MD Primary Care Provider Allergies Active Allergy Reactions Criticality Noted Date Comments Codeine Difficulty breathing 06/02/2016 Metoprolol 08/21/2016 Shortness of breath Medications Medication Sig Dispensed Refills Start Date End Date Status acetaminophen (TYLENOL) 325 MG tablet Take 325 mg by mouth as needed for mild pain Active CycloSPORINE (RESTASIS OP) As directed Active meloxicam (MOBIC) 7.5 MG tablet Take 7.5 mg by mouth daily Active escitalopram (LEXAPRO) 20 MG tablet Take 20 mg by mouth daily Active aspirin EC 81 MG tabletIndications:SOB (shortness of breath) Take 1 tablet (81 mg) by mouth daily 30 tablet 1 06/02/2016 Active levothyroxine (SYNTHROID) 150 MCG tablet Take 150 mcg by mouth daily Active nebivolol (BYSTOLIC) 5 MG tabletIndications:Rodolfo ign essential hypertension Take 1 tablet (5 mg) by mouth daily 30 tablet 11 10/29/2016 Active mirabegron (MYRBETRIQ) 25 MG 24 hr tablet Take 25 mg by mouth daily Active baclofen (LIORESAL) 10 MG tablet Take 10 mg by mouth 3 times daily Active Vitamin D, Cholecalciferol, 1000 UNITS CAPS Take 4,000 Units by mouth daily Active fish oil-omega-3 fatty acids 1000 MG capsule Take 1 g by mouth daily Active calcium carbonate (OS-ARMANDO 500 MG [place]. [place]) 500 MG tablet Take 500 mg by mouth daily Active torsemide (DEMADEX) 10 MG tabletIndications:Rodolfo ign essential hypertension Take 1 tablet (10 mg) by mouth daily 14 tablet 01/27/2017 Active potassium chloride SA (K-DUR/KLOR-CON M) 10 MEQ CR tabletIndications:Rodolfo ign essential hypertension Take 1 tablet (10 mEq) by mouth daily 14 tablet 01/27/2017 Active atorvastatin (LIPITOR) 20 MG tabletIndications:Hyp [...] Sex Assigned at Female 11/06/2020 8:46 AM INDUSTRIAL ELECTRICAL TECHNICIAN Gender Identity Female 11/06/2020 8:46 AM INDUSTRIAL ELECTRICAL TECHNICIAN Sexual Orientation Not on file Last Filed [...] 60+ series) 2004 FALL RISK ASSESSMENT 2009 DTAP/TDAP/TD IMMUNIZATION (1 - Tdap) 07/06/2012 07/05/2012, 01/11/2003 LIPID 08/21/2017 08/21/2016, 07/03/2015 TSH W/FREE T4 REFLEX 11/20/2017 11/20/2016, 07/03/20 15 GLUCOSE 11/20/2019 11/20/2016, 07/03/2015 COVID-19 Vaccine ( season) 2023 11/30/2020, [...] on patient's age to complete this topic Procedures Procedure Name Priority Date/Time Associated Diagnosis Comments GLUCOSE Routine 11/20/2016 8:37 AM INDUSTRIAL ELECTRICAL TECHNICIAN Fatigue TSH Routine 11/20/2016 8:37 AM INDUSTRIAL ELECTRICAL TECHNICIAN Fatigue LIPID PROFILE Routine 08/21/2016 9:31 AM INDUSTRIAL ELECTRICAL TECHNICIAN Hyperlipidemia LDL goal <100 from Last 3 Months or Most Recently Relevant to Health Maintenance Results * TSH (11/20/2016 8:37 AM INDUSTRIAL ELECTRICAL TECHNICIAN) TSH 0.43 0.40 - 4.00 mU/L [facility] Blood specimen (specimen) 11/20/2016 8:37 AM INDUSTRIAL ELECTRICAL TECHNICIAN 11/20/2016 8:46 AM INDUSTRIAL ELECTRICAL TECHNICIAN Kadi Angulo MD LAB - BLOOD ORDERABL ES [facility] [address] [place] [address], [facility] [phone] * (ABNORMAL) Glucose (11/20/2016 8:37 AM INDUSTRIAL ELECTRICAL TECHNICIAN) Glucose 111(H) 70 - 99 mg/dL [facility] Blood specimen (specimen) 11/20/2016 8:37 AM INDUSTRIAL ELECTRICAL TECHNICIAN 11/20/2016 8:46 AM INDUSTRIAL ELECTRICAL TECHNICIAN Kadi Angulo MD LAB - BLOOD ORDERABL ES Performing Organization Address [facility] de Phone Number [facility] [address] [place] [address], [facility] [phone] * Lipid Profile (08/21/2016 9:31 AM INDUSTRIAL ELECTRICAL TECHNICIAN) Cholesterol 171 <200 mg/dL [facility] Triglycerides 110 <150 mg/dL [facility] A Comment:Fasting specimen HDL Cholesterol 51 >49 mg/dL [facility] LDL Cholesterol Calculated 98 <100 mg/dL [facility] A Comment:Desirable: <100 mg/d l Non HDL Cholesterol 120 <130 mg/dL [facility] Blood specimen (specimen) 08/21/2016 9:31 AM INDUSTRIAL ELECTRICAL TECHNICIAN 08/21/2016 9:32 AM INDUSTRIAL ELECTRICAL TECHNICIAN Gerry Hoskins MD LAB - BLOOD ORDERABL ES Performing Organization Address City/[facility]/ZIP Co de Phone Number [facility] [address] [place] [address] from Last 3 Months or Most Recently Relevant to Health Maintenance Care Teams Mutual Fund Sales Agent Relationship Specialty Start Date End Date Damir Powell MD [facility] [address] [place] [address] PCP - General Internal Medicine 06/02/16
--- OUTSIDE RECORDS SUMMARY | 2024-01-14 10:25 | XMS_ITS | Referral Summary ---
Author Name Unknown Organization [facility] Address [address] [place] [address] Care Team Providers Care Oil Producer Name Role Phone Damir Powell MD Primary [...] daily Active calcium carbonate (OS-ARMANDO 500 MG [place]. [place]) 500 MG tablet Take 500 mg [...] Sex Assigned at Female 11/06/2020 8:46 AM IT PROGRAMMER ANALYST Gender Identity Female 11/06/2020 8:46 AM IT PROGRAMMER ANALYST Sexual Orientation Not on file Last Filed [...] CDT Plan of Treatment Not on file Procedures Procedure Name Priority Date/Time Associated Diagnosis Comments GLUCOSE Routine 11/20/2016 8:37 AM IT PROGRAMMER ANALYST Fatigue TSH Routine 11/20/2016 8:37 AM IT PROGRAMMER ANALYST Fatigue LIPID PROFILE Routine 08/21/2016 9:31 AM IT PROGRAMMER ANALYST Hyperlipidemia LDL goal <100 from Last 3 Months or Most Recently Relevant to Health Maintenance Results * TSH (11/20/2016 8:37 AM IT PROGRAMMER ANALYST) TSH 0.43 0.40 - 4.00 mU/L [facility] Blood specimen (specimen) 11/20/2016 8:37 AM IT PROGRAMMER ANALYST 11/20/2016 8:46 AM IT PROGRAMMER ANALYST Kadi Angulo MD LAB - BLOOD ORDERABL ES Performing Organization Address [facility] de Phone Number [facility] [address] [phone] * (ABNORMAL) Glucose (11/20/2016 8:37 AM IT PROGRAMMER ANALYST) [facility] Glucose 111(H) 70 - 99 mg/dL [facility] Blood specimen (specimen) 11/20/2016 8:37 AM IT PROGRAMMER ANALYST 11/20/2016 8:46 AM IT PROGRAMMER ANALYST Kadi Angulo MD LAB - BLOOD ORDERABL ES Performing Organization Address [facility] Phone Number [facility] [address] [phone] * Lipid Profile (08/21/2016 9:31 AM IT PROGRAMMER ANALYST) [facility] Cholesterol 171 <200 mg/dL [facility] Triglycerides 110 <150 mg/dL [facility] A Comment:Fasting specimen HDL Cholesterol 51 >49 mg/dL [facility] A LDL Cholesterol Calculated 98 <100 mg/dL [facility] A Comment:Desirable: <100 mg/d l Non HDL Cholesterol 120 <130 mg/dL [facility] Blood specimen (specimen) 08/21/2016 9:31 AM IT PROGRAMMER ANALYST 08/21/2016 9:32 AM IT PROGRAMMER ANALYST Gerry Hoskins MD LAB - BLOOD ORDERABL ES Performing Organization Address [facility] de Phone Number [facility] [address] [place] [address] from Last 3 Months or Most Recently Relevant to Health Maintenance Care Teams Oil Producer Relationship Specialty Start Date End Date Damir Powell MD [facility] [address] [place] [address] PCP - General Internal Medicine 06/02/16
--- OUTSIDE RECORDS SUMMARY | 2024-01-14 10:25 | XMS_ITS | Clinical Summary ---
Author Name Unknown Organization [facility] Address [place], [place] [address] Care Team Providers Care Scroll Assembler Name Role Phone Kamilla Rodriguez RN, BSN Unavailable [phone] Royce Moy MD Primary Care Provider + Nam Samaniego MD Unavailable [phone] Allergies Active Allergy Reactions Criticality Noted Date Comments Codeine Shortness Of Breath 12/05/2006 Medications Medication Sig Dispensed Refills Start Date End Date Status levothyroxine (SYNTHROID) 200 mcg tablet Take 1 Tab by mouth once daily. 04/19/2013 Active escitalopram oxalate (LEXAPRO) 10 mg tablet Take 1 tablet by mouth once daily. 0 02/08/2019 Active RESTASIS 0.05 % ophthalmic emulsion Place 1 Drop into both eyes 2 times daily. 3 01/25/2019 Active atorvastatin (LIPITOR) 20 mg tablet 05/30/2021 Active Wixela Inhub 250-50 mcg/dose diskus inhaler 03/26/2021 Active naproxen sodium (Aleve) 220 mg cap Take by mouth. 0 2021 Ac tive diphenhydrAMINE-ac etaminophen 25-500 mg (Tylenol PM Extra Strength) 25-500 mg tablet Take 1 Tablet by mouth at bedtime if needed. Max acetaminophen dose: 4000mg in 24 hrs. 0 2021 Active LISINOPRIL ORAL Take 10 mg by mouth once daily. Active triamcinolone (ARISTOCORT; KENALOG) 0.1 % creamIndications:R jose a and nonspecific skin eruption Apply topically to arms twice a day for 2 weeks then use only as needed for spots that did not resolve. 60 g 04/30/2022 Active anastrozole (ARIMIDEX) 1 mg tabletIndications: Malignant neoplasm of upper-outer quadrant of left breast in female, estrogen receptor positive (HC) TAKE 1 TABLET EVERY DAY 90 Tablet 3 01/23/2023 Active ammonium lactate 12% (LACHYDRIN) 12 % cream APPLY THIN LAYER TOPICALLY TO THE AFFECTED AREA ON NECK AND ARMS EVERY DAY AFTER A SHOWER 06/10/2023 Active CPAPIndications:OS A (obstructive sleep apnea) CPAP machine for home use at pressure 9 cmw, nasal mask x1/3month with nasal pillows x 2/mo 1 Each 11 08/06/2023 Active Active Problems Problem Noted Date Diagnosed Date Malignant neoplasm of upper- outer quadrant of left breast in female, estrogen receptor positive 07/02/2021 Cancer Staging:Clinical:Stage IA(cT1, cN0, cM0, G2, ER+, LA+, HER2: Equivocal) - Signed by Bianka Aguilar MD on 07/02/2021 Pathologic stage from 08/20/2021:Stage IA(pT1c, pN0(sn), cM0, G2, ER+, LA+, HER2: Equivocal) - Signed by Liz Salter [...] Diagnosed Date Resolved Date Unspecified sleep apnea 12/05/2006 090 11/2020 Encounters Date Type Department Care Team Description 12/15/2023 Orders Only [facility] Scanner 1 scan: (1-Ord) INCOMING RECORDS-CT, [facility], 12/15/2023 12/03/2023 10:00 AM INVESTMENT CONSULTANT Office Visit [facility] [address] [place] [address] Joss Pang MD Follow Up 12/03/2023 Telephone [facility] [address] [place] [phone] Joss Pang MD [place] (/) 12/03/2023 Travel from Last 3 Months Immunizations Name [...] Sign Reading Time Taken Comments Blood Pressure 145/69 12/03/2023 10:00 AM INVESTMENT CONSULTANT Pulse 84 12/03/2023 10:00 AM INVESTMENT CONSULTANT Temperature 36.6 ??C (97.9 ??F) 12/03/2023 1 0:00 AM INVESTMENT CONSULTANT Respiratory Rate 18 12/03/2023 10:0 0 AM INVESTMENT CONSULTANT Oxygen Saturation 97% 12/03/2023 10: 00 AM INVESTMENT CONSULTANT Inhaled Oxygen Concentration - - Weight 96.1 kg (211 lb 14.4 oz) 024 10:00 AM INVESTMENT CONSULTANT Height 162.6 cm (5' 4) 08/06/2023 11:2 5 AM CDT Body Mass Index 36.37 08/06/2023 11:25 AM CDT Plan of Treatment Health Maintenance Due Date Last Done Comments Tdap 1955 Depression screening for age 12+ 1956 Hepatitis C screening for ag e 18-79 1962 Zoster (shingles) series for age 50+ (1 of 2) 1963 Pneumococcal series for age 65+ (2 of 2 - PCV) 06/04/2007 06/04/2006 Medicare Wellness for age 65+ 2009 Tetanus booster 01/11/2013 01/11/2003 COVID-19 vaccine series ( season) 2023 06/27/2023, 07/31/2022, 05/09/2022, Additional history exists Influenza for age 65+ 06/05/2024 07/26/2008, 007 BMI (ht and wt on same day) for age 18+ 08/06/2024 08/06/2023, 06/24/2023, 06/03/2023, Additional history exists DEXA/DXA scan for age 65+ Completed 2022, 09/12/2021, 08/10/2008 Procedures Procedure Name Priority Date/Time Associated Diagnosis Comments SCAN CORRESP-IMAGING 12/15/2023 12:00 AM CDT XR DXA BONE DENSITY 2 SITES AXIAL Routine 09/07/2023 10:42 AM INVESTMENT CONSULTANT Malignant neoplasm of upper-outer quadrant of left breast in female, estrogen receptor positive (HC) from Last 3 Months or Most Recently Relevant to Health Maintenance Results * SCAN CORRESP-IMAGING (12/15/2023 12:00 AM CDT) Anatomical Region Laterality Modality Other Scanner OTHER * XR DXA BONE DENSITY 2 SITES AXIAL (09/07/2023 10:42 AM INVESTMENT CONSULTANT) Anatomical Region Laterality Modality Spine, HIPS, HIPL, HIPR Other Impressions 09/14/2023 7:47 AM INVESTMENT CONSULTANT Normal bone density. RECOMMENDATIONS: The National Osteoporosis [...] recommended in 3-5 years. Teri Busch PA-C [facility] 09/14/2023 Narrative 09/14/2023 7:47 AM INVESTMENT CONSULTANT For Patients: Results are automatically released to your [facility] ([employer]) account once available, in compliance with federal regulations. This means that you may see your results before your provider has had a chance to review them. Please allow 2-3 business days for your provider to comment on the results. XR DXA Bone Mineral Density (BMD) EXAM LOCATION: [address] [address] PATIENT NAME: Aura Wilson DATE OF : [...] two scanners are made by the same restaurant floor manager. PROCEDURE: Dual-energy x-ray absorptiometry performed with routine [...] Pang MD DEXA from Last 3 Months or Most Recently Relevant to Health Maintenance Advance Directives * Full Code (Latest Code Status on File) Date Activated Date Inactivated Comments 08/09/2021 10:17 AM 08/09/2021 9:08 PM Question Answer Comments Code Status Discussion: Not Discussed Care Teams Scroll Assembler Relationship Specialty Start Date End Date Royce Moy MD [address] [place] [address] PCP - General Family Practice 07/08/21 Kamilla Rodriguez, RN, BSN [address] [place], [place] [address] Nurse Navigator Oncology 06/25/21 Nam Samaniego MD [address] [place] [address] Radiation Oncologist Internal Medicine 08/06/21
[2024-01-14 13:49] VITALS: BMI 34.2
== END 2024-01-14 10:23 | disposition home or self-care (01) ==
PROVIDERS: PCP Family Medicine; Visit Provider Dietitian, Registered
DX: E66.9 Obesity, unspecified (principal); Z71.3 Dietary counseling and surveillance
CPT/HCPCS: G0463

== ENCOUNTER 2024-03-02 12:30 | Outpatient (RCR) | payer MEDICARE, BC, SELFPAY ==
--- NOTE | 2024-03-02 13:40 | PT.OPEX ---
PT [facility] Outpatient Eval PT [facility] Outpatient Eval Start: 03/02/24 08:34 Freq: Status: Active Protocol: Document 03/02/24 08:35 KLV (Rec: 03/02/24 13:40 KLV [id number]) E-signed By Shruthi Irene, PT Physical Therapy Outpatient Evaluation Insurance Information Recert Due Date 05/27/24 Insurance Name Medicare B,Blue Cross/Blue Shield Medical Diagnosis Left thigh weakness s/p left TKA 07/11/19 Treating Diagnosis Left knee pain, muscle weakness, limited knee ROM Referring MD Trevino Subjective Subjective Aura reports to PT with primary complaint of left knee pain following 2 falls 11/06/23 and 02/21/24. Both falls she fell fairly hard on the left knee and this last time she was quite swollen and bruising noted still lateral aspect of knee/mauro. She has not iced. Both times seemed to be related to outside forces while she was walking her dogs . She states that her knee tends to give out on her though. She does note that balance is not what it used to be. Previous L TKA on 07/11/19 . She had recent x-rays that revealed stable TKA components and no evidence of loosening or fractures. Most difficulty/ pain with descending stairs. Not bothersome with ascending stairs or walking. Goal is to be able to do stairs with minimal to no pain. Pain Comments 3/10 worst Date of Last Physician Visit 03/01/24 Current Work Status Retired Objective Other/Pertinent Objective Knee ROM: -R 0-120 -L 0-112, 0-120 with OP LE Strength (R/L): -Knee Ext: R: 4+/5, L: 4/5 -Knee Flex: R: 4+/5, L: 4+/5 -Hip Abd: R: 4-/5, L: 3+/5 -Hip Add: R: 4/5, L: 4/5 -Hip Ext: R: 4/5, L: 4/5 -Hip Flx: R: 4/5, L: 4-/5 Mild ecchymosis distal/lateral to patella, TTP over this region however no TTP tibial tubercle or patella Gait: trendelenburg B SL balance: able to hold ~5 sec without UE support B however more difficult L LE with trendelenburg stance B Functional Test Performed & Score LEFS: 49/80 Assessment Assessment/Impression Patient is a 78 year old female presenting to physical therapy for evaluation and treatment of left knee pain following 2 recent falls. Previous L TKA. X-rays were unremarkable. Patient presents with fair eccentric quad strength and proximal hip strength, limited knee flexion and hip extension, fair balance. These impairments are limiting the patients ability to descend stairs, don shoes/ socks, squat/lift heavier objects, walk her dogs. Patient appears motivated to participate in PT and presents with good prognosis to improve mobility, strength, proprioception and return to functional activities with skilled physical therapy intervention. Primary Functional Limitations descend stairs, don shoes/ socks, squat/lift heavier objects, walk her dogs Plan of Care Rehabilitation Potential Good Physical Therapy Goals In 6 weeks (04/13/24) Pt will demonstrate 0-120 AROM knee ROM with <1/10 pain in order to don shoes and socks Pt will be able to descend stairs with <1/10 pain in order to perform ADLs In 10 weeks (05/11/24) Pt will demonstrate at least 4 /5 strength MMT in quad, HF glut max & glut med to improve dynamic control with SLS activities and gait. Pt will exhibit 9 pt improvement in LEFS Outcome measure to demonstrate functional improvement and progress towards goals. Pt will be independent with HEP Treatment Plan/Direct Interventions Gait Training,Ice/Cold/ Vasopneumatic,Joint Mobilization,Manual Therapy, Neuromuscular Re-ed,Self-Care/ Home Management,Therapeutic Activities,Therapeutic Exercises Frequency/Duration 1x/wk for 4 weeks with additional 4 sessions prn based on progress Patient Will Be Discharged From Therapy Completion of LTG(s), Independent w/HEP, Independently Progressing Evaluation Billing Untimed Code Treatment Minutes 25 Complexity Low Certification Information Initial Certification Date 03/02/24 Ending Certification Date 05/27/24 Provider Signature Shows Agreement With POC & Medical Necessity Physician Signature & Date Requested Please Sign/Date Here Physician Comment/Change : Physician NPI Number #
== END 2024-05-25 10:59 | disposition home or self-care (01) ==
PROVIDERS: PCP Family Medicine; Visit Provider Orthopaedic Surgery Sports Medicine
DX: Z98.890 Other specified postprocedural states (principal); M25.562 Pain in left knee; M62.81 Muscle weakness (generalized); Z74.09 Other reduced mobility; Z51.89 Encounter for other specified aftercare
CPT/HCPCS: 97110; 97161

== ENCOUNTER 2024-06-09 10:16 | Outpatient (CLI) | payer MEDICARE, BC, SELFPAY ==
--- OUTSIDE RECORDS SUMMARY | 2024-06-09 10:20 | XMS_ITS | Clinical Summary ---
Author Organization [place] Address [address] [place] [address] Care Team Providers Care Cellar Pumper Name Role Phone Damir Powell MD Primary [...] daily Active calcium carbonate (OS-ARMANDO 500 MG [place]AR[place]. CA) 500 MG tablet Take 500 mg [...] Sex Assigned at Female 11/06/2020 8:46 AM BOX TRUCK WASHER Gender Identity Female 11/06/2020 8:46 AM BOX TRUCK WASHER Sexual Orientation Not on file Last Filed [...] REVIEW OF HM ORDERS 1944 DEXA 1944 RSV VACCINE (1 - 1-dose 60+ series) 2004 FALL RISK ASSESSMENT 2009 DTAP/TDAP/TD IMMUNIZATION (1 - Tdap) 07/06/2012 07/05/2012, 01/11/2003 LIPID 08/21/2017 08/21/2016, 07/03/2015 TSH W/FREE T4 REFLEX 11/20/2017 11/20/2016, 07/03/20 15 GLUCOSE 11/20/2019 11/20/2016, 07/03/2015 PHQ-2 (once per calendar year) 2023 COVID-19 Vaccine ( season) 2024 11/30/2020, 11/09/2020 INFLUENZA VACCINE (#1) 2024 0, 07/06/2019, 07/01/2018, Additional history exists Pneumococcal Vaccine: 65+ Years Completed 07/03/2015, 08/11/2011, [...] Diagnosis Comments GLUCOSE Routine 11/20/2016 8:37 AM BOX TRUCK WASHER Fatigue TSH Routine 11/20/2016 8:37 AM BOX TRUCK WASHER Fatigue LIPID PROFILE Routine 08/21/2016 9:31 AM BOX TRUCK WASHER Hyperlipidemia LDL goal <100 from Last 3 Months or Most Recently Relevant to Health Maintenance Results * TSH (11/20/2016 8:37 AM BOX TRUCK WASHER) TSH 0.43 0.40 - 4.00 mU/L [facility] Blood specimen (specimen) 11/20/2016 8:37 AM BOX TRUCK WASHER 11/20/2016 8:46 AM BOX TRUCK WASHER Kadi Angulo MD LAB - BLOOD ORDERABL ES [facility] [address] [id number], [facility] [phone] * (ABNORMAL) Glucose (11/20/2016 8:37 AM BOX TRUCK WASHER) Glucose 111(H) 70 - 99 mg/dL [facility] Blood specimen (specimen) 11/20/2016 8:37 AM BOX TRUCK WASHER 11/20/2016 8:46 AM BOX TRUCK WASHER Kadi Angulo MD LAB - BLOOD ORDERABL ES Performing Organization Address City/[facility]/ZIP Co de Phone Number [facility] [address] [place], [place] [address] [phone] * Lipid Profile (08/21/2016 9:31 AM BOX TRUCK WASHER) Cholesterol 171 <200 mg/dL [facility] Triglycerides 110 <150 mg/dL [facility] A Comment:Fasting specimen HDL Cholesterol 51 >49 mg/dL [facility] LDL Cholesterol Calculated 98 <100 mg/dL [facility] A Comment:Desirable: <100 mg/d l Non HDL Cholesterol 120 <130 mg/dL [facility] Blood specimen (specimen) 08/21/2016 9:31 AM BOX TRUCK WASHER 08/21/2016 9:32 AM BOX TRUCK WASHER Gerry Hoskins MD LAB - BLOOD ORDERABL ES Performing Organization Address City/[facility]/ZIP Co de Phone Number [facility] AT [facility] [address] [place], [place] [phone] from Last 3 Months or Most Recently Relevant to Health Maintenance Care Teams Cellar Pumper Relationship Specialty Start Date End Date Damir Powell MD [facility] [address] [phone] PCP - General Internal Medicine 06/02/16
--- OUTSIDE RECORDS SUMMARY | 2024-06-09 10:20 | XMS_ITS | Referral Summary ---
Author Organization [place] Address [address] [place] [address] Care Team Providers Care Casting Repairer Name Role Phone Damir Powell MD Primary [...] daily Active calcium carbonate (OS-ARMANDO 500 MG [place]. CA) 500 MG tablet Take 500 mg [...] Sex Assigned at Female 11/06/2020 8:46 AM CONCRETE POINTER Gender Identity Female 11/06/2020 8:46 AM CONCRETE POINTER Sexual Orientation Not on file Last Filed [...] Diagnosis Comments GLUCOSE Routine 11/20/2016 8:37 AM CONCRETE POINTER Fatigue TSH Routine 11/20/2016 8:37 AM CONCRETE POINTER Fatigue LIPID PROFILE Routine 08/21/2016 9:31 AM CONCRETE POINTER Hyperlipidemia LDL goal <100 from Last 3 Months or Most Recently Relevant to Health Maintenance Results * TSH (11/20/2016 8:37 AM CONCRETE POINTER) Pathologist [facility] TSH 0.43 0.40 - 4.00 mU/L [facility] Blood specimen (specimen) 11/20/2016 8:37 AM CONCRETE POINTER 11/20/2016 8:46 AM CONCRETE POINTER Kadi Angulo MD LAB - BLOOD ORDERABL ES Performing Organization Address [facility] de Phone Number [facility] [address] [phone] * (ABNORMAL) Glucose (11/20/2016 8:37 AM CONCRETE POINTER) [facility] Glucose 111(H) 70 - 99 mg/dL [facility] Blood specimen (specimen) 11/20/2016 8:37 AM CONCRETE POINTER 11/20/2016 8:46 AM CONCRETE POINTER Kadi Angulo MD LAB - BLOOD ORDERABL ES Performing Organization Address [facility] de Phone Number [facility] [address] [phone] * Lipid Profile (08/21/2016 9:31 AM CONCRETE POINTER) [facility] Cholesterol 171 <200 mg/dL [facility] Triglycerides 110 <150 mg/dL [facility] A Comment:Fasting specimen HDL Cholesterol 51 >49 mg/dL [facility] A LDL Cholesterol Calculated 98 <100 mg/dL [facility] A Comment:Desirable: <100 mg/d l Non HDL Cholesterol 120 <130 mg/dL [facility] Blood specimen (specimen) 08/21/2016 9:31 AM CONCRETE POINTER 08/21/2016 9:32 AM CONCRETE POINTER Gerry Hoskins MD LAB - BLOOD ORDERABL ES Performing Organization Address [facility] de Phone Number [facility] AT [facility] [address] [place] [address] from Last 3 Months or Most Recently Relevant to Health Maintenance Care Teams Casting Repairer Relationship Specialty Start Date End Date Damir Powell MD [facility] [address] [place], [place] [phone] PCP - General Internal Medicine 06/02/16
--- OUTSIDE RECORDS SUMMARY | 2024-06-09 10:20 | XMS_ITS | Clinical Summary ---
Author Organization [facility] Address [place], [place] [address] Care Team Providers Care Chemical Research Technician Name Role Phone Kamilla Rodriguez RN, BSN Unavailable [phone] Royce Moy MD Primary Care Provider + Nam Samaniego MD Unavailable [phone] Allergies Active Allergy Reactions Criticality Noted Date [...] Cancer Staging:Clinical:Stage IA(cT1, cN0, cM0, G2, ER+, DE+, HER2: Equivocal) - Signed by Bianka Aguilar MD on 07/02/2021 Pathologic stage from 08/20/2021:Stage IA(pT1c, pN0(sn), cM0, G2, ER+, DE+, HER2: Equivocal) - Signed by Liz Salter [...] Date Resolved Date Unspecified sleep apnea 12/05/200611/2020 Immunizations Name Administration Dates Next Due Hepatitis [...] Comments Blood Pressure 145/69 12/03/2023 10:00 AM BINDER FOLDER OPERATOR Pulse 84 12/03/2023 10:00 AM BINDER FOLDER OPERATOR Temperature 36.6 ??C (97.9 ??F) 12/03/2023 1 0:00 AM BINDER FOLDER OPERATOR Respiratory Rate 18 12/03/2023 10:0 0 AM BINDER FOLDER OPERATOR Oxygen Saturation 97% 12/03/2023 10: 00 AM BINDER FOLDER OPERATOR Inhaled Oxygen Concentration - - Weight 96.1 kg (211 lb 14.4 oz) 024 10:00 AM BINDER FOLDER OPERATOR Height 162.6 cm (5' 4) 08/06/2023 11:2 5 AM CDT Body Mass Index 36.37 08/06/2023 11:25 AM CDT Plan of Treatment Upcoming Encounters Date Type Department Care Team (Late st Contact Info) Description 07/28/2024 9:30 AM CDT Appointment [facility] [address] [place] [address] 07/28/2024 10:00 AM CDT Office Visit [facility] [address] [place] [phone] Joss Pang MD [address] [place], [place] [phone] 09/06/2024 1:00 PM BINDER FOLDER OPERATOR Office Visit [facility] [address] [place] [address] Enrike Alexander MD [address] [place] [address] Health Maintenance Due Date Last Done Comments Tdap 1955 Depression screening for age 12+ 1956 Zoster (shingles) series for age 50+ (1 of 2) 1963 RSV vaccine for adults or (1 - 1-dose 60+ series) 2004 Medicare Wellness for age 65+ 2009 Pneumococcal series for age 65+ (2 of 2 - PCV) 2009 06/04/2006 Tetanus booster 01/11/2013 01/11/2003 COVID-19 vaccine series ( season) 2024 06/27/2023, 07/31/2022, 05/09/2022, Additional history exists Influenza for age 65+ 06/05/2024 07/26/2008, 007 BMI (ht and wt on same day) for age 18+ 08/06/2024 08/06/2023, 06/24/2023, 06/03/2023, Additional history exists DEXA/DXA scan for age 65+ Completed 2022, 09/12/2021, 08/10/2008 Procedures Procedure Name Priority Date/Time Associated Diagnosis Comments XR DXA BONE DENSITY 2 SITES AXIAL Routine 09/07/2023 10:42 AM BINDER FOLDER OPERATOR Malignant neoplasm of upper-outer quadrant of left breast in female, estrogen receptor positive (HC) from Last 3 Months or Most Recently Relevant to Health Maintenance Results * XR DXA BONE DENSITY 2 SITES AXIAL (09/07/2023 10:42 AM BINDER FOLDER OPERATOR) Anatomical Region Laterality Modality Spine, HIPS, HIPL, HIPR Other Impressions 09/14/2023 7:47 AM BINDER FOLDER OPERATOR Normal bone density. RECOMMENDATIONS: The National Osteoporosis [...] recommended in 3-5 years. Teri Busch PA-C [facility] 09/14/2023 Narrative 09/14/2023 7:47 AM BINDER FOLDER OPERATOR For Patients: Results are automatically released to your [facility] ([facility]) account once available, in compliance with federal regulations. This means that you may see your results before your provider has had a chance to review them. Please allow 2-3 business days for your provider to comment on the results. XR DXA Bone Mineral Density (BMD) EXAM LOCATION: [address] [address] PATIENT NAME: Aura Wilson DATE OF : [...] two scanners are made by the same child care center administrator. PROCEDURE: Dual-energy x-ray absorptiometry performed with routine [...] Code Status Discussion: Not Discussed Care Teams Chemical Research Technician Relationship Specialty Start Date End Date Royce Moy MD [address] [place] [address] PCP - General Family Practice 07/08/21 Kamilla Rodriguez, RN, BSN [address] [place], [place] [address] Nurse Navigator Oncology 06/25/21 Nam Samaniego MD [address] [place] [address] Radiation Oncologist Internal Medicine 08/06/21
--- OUTSIDE RECORDS SUMMARY | 2024-06-09 10:20 | XMS_ITS | Continuity of Care Document ---
Author Organization [facility] Address [address] [place] [address] Phone Care Team Providers Care Grain Picker Name Role Phone Unavailable Unavailable Unavailable Procedures Procedure Date Office/outpatient visit,[facility] 2007 Advance Directives Directive Yes / No Effective Date File Name No Information Encounters Encounter Description Practice Location Reason(s) For Visit Diagnoses Date Provider Providers Copied on Encounter Office/outpat ient visit,[facility], [facility], [address], [place], [address], [place] tel:[phone] [facility] No Information 5200 [id number] No Information Family History Family Member Type Diagnosis Age At Onset No Information Payers Payer name Insurance type Covered constitution party ID Authoriza tion(s) [facility] [id number] Social History Type Description Quantity Date Captured [...]
== END 2024-06-09 10:17 | disposition home or self-care (01) ==
PROVIDERS: PCP Family Medicine; Visit Provider Family Medicine
DX: E78.5 Hyperlipidemia, unspecified (principal); I10 Essential (primary) hypertension; E03.9 Hypothyroidism, unspecified; E55.9 Vitamin D deficiency, unspecified; M25.541 Pain in joints of right hand; M25.542 Pain in joints of left hand
CPT/HCPCS: 80048; 80061; 82306; 84443; 84460; 86140

== ENCOUNTER 2024-07-04 14:00 | Outpatient (RCR) | payer MEDICARE, BC, SELFPAY ==
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
== END 2024-09-23 10:34 | disposition home or self-care (01) ==
PROVIDERS: PCP Family Medicine; Visit Provider Family Medicine
DX: S13.4XXA Sprain of ligaments of cervical spine, initial encounter (principal); M54.2 Cervicalgia; M54.12 Radiculopathy, cervical region; M53.82 Other specified dorsopathies, cervical region; Z51.89 Encounter for other specified aftercare
CPT/HCPCS: 97110; 97140; 97161

== ENCOUNTER 2024-09-05 09:10 | Outpatient (CLI) | payer MEDICARE, BC, SELFPAY ==
--- OUTSIDE RECORDS SUMMARY | 2024-09-05 09:15 | XMS_ITS | Continuity of Care Document ---
Author Organization [facility] Address [address] [place] [address] Phone Care Team Providers Care Rn Social Work Name Role Phone Unavailable Unavailable Unavailable Procedures Procedure Date Office/outpatient visit,[facility] 2007 Advance Directives Directive Yes / No Effective Date File Name No Information Encounters Encounter Description Practice Location Reason(s) For Visit Diagnoses Date Provider Providers Copied on Encounter Office/outpat ient visit,[facility], [facility], [address], [place], [address], [place] tel:[phone] [facility] No Information 5200 [id number] No Information Family History Family Member Type Diagnosis Age At Onset No Information Payers Payer name Insurance type Covered democrat ID Authoriza tion(s) [facility] [id number] Social History Type Description Quantity Date Captured [...]
--- OUTSIDE RECORDS SUMMARY | 2024-09-05 09:15 | XMS_ITS | Referral Summary ---
Author Organization [place] Address [address] [place] [address] Care Team Providers Care Certified First Assistant Name Role Phone Damir Powell MD Primary Care Provider Allergies Active Allergy Reactions Criticality Noted Date Comments Codeine Difficulty breathing 06/02/2016 Metoprolol 08/21/2016 Shortness of breath Medications acetaminophen (TYLENOL) 325 MG tablet Take 325 mg by mouth as needed for mild pain Active CycloSPORINE (RESTASIS OP) As directed Acti ve meloxicam (MOBIC) 7.5 MG tablet Take 7.5 mg by mouth daily Active escitalopram (LEXAPRO) 20 MG tablet Take 20 mg by mouth daily Active aspirin EC 81 MG tabletIndications :SOB (shortness of breath) Take 1 tablet (81 mg) by mouth daily 30 tablet 1 6 Active levothyroxine (SYNTHROID) 150 MCG tablet Take 150 mcg by mouth daily Active nebivolol (BYSTOLIC) 5 MG tabletIndications :Benign essential hypertension Take 1 tablet (5 mg) by mouth daily 30 tablet 11 7 Active mirabegron (MYRBETRIQ) 25 MG 24 hr tablet Take 25 mg by mouth daily Active baclofen (LIORESAL) 10 MG tablet Take 10 mg by mouth 3 times daily Active Vitamin D, Cholecalciferol, 1000 UNITS CAPS Take 4,000 Units by mouth daily Active fish oil-omega-3 fatty acids 1000 MG capsule Take 1 g by mouth daily Active calcium carbonate (OS-ARMANDO 500 MG [place]. CA) 500 MG tablet Take 500 mg by mouth daily Active torsemide (DEMADEX) 10 MG tabletIndications :Benign essential hypertension Take 1 tablet (10 mg) by mouth daily 14 tablet 7 Active potassium chloride SA (K-DUR/KLOR-CON M) 10 MEQ CR tabletIndications :Benign essential hypertension Take 1 tablet (10 mEq) by mouth daily 14 tablet 7 Active atorvastatin (LIPITOR) 20 MG tabletIndications :Hyperlipidemia LDL goal <100 Take 1 tablet (20 mg) by mouth daily 90 tablet 1 7 Active Active Problems Problem Noted Date Diagnosed [...] School Help Needed Not on file 07/19 Comments Unknown Sex and Gender Information Value Date Recorded Sex Assigned at Female 11/06/2020 8:46 AM MULTILITH OPERATOR Legal Sex Female 3:28 AM MULTILITH OPERATOR Gender Identity Female 11/06/2020 8:46 AM MULTILITH OPERATOR Sexual Orientation Not on file Last [...] Diagnosis Comments GLUCOSE Routine 11/20/2016 8:37 AM MULTILITH OPERATOR Fatigue TSH Routine 11/20/2016 8:37 AM MULTILITH OPERATOR Fatigue LIPID PROFILE Routine 08/21/2016 9:31 AM MULTILITH OPERATOR Hyperlipidemia LDL goal <100 from Last 3 Months or Most Recently Relevant to Health Maintenance Results * TSH (11/20/2016 8:37 AM MULTILITH OPERATOR) TSH 0.43 0.40 - 4.00 mU/L [facility] Blood specimen (specimen) 11/20/2016 8:37 AM MULTILITH OPERATOR 11/20/2016 8:46 AM MULTILITH OPERATOR us Kadi Angulo MD LAB - BLOOD ORDERABLES Final R esult Performing Organization Address [facility] Co de Phone Number [facility] [address] [place] [address], [facility] [phone] * (ABNORMAL) Glucose (11/20/2016 8:37 AM MULTILITH OPERATOR) Pathologist [facility] Glucose 111(H) 70 - 99 mg/dL [facility] Blood specimen (specimen) 11/20/2016 8:37 AM MULTILITH OPERATOR 11/20/2016 8:46 AM MULTILITH OPERATOR us Kadi Angulo MD LAB - BLOOD ORDERABLES Final R esult Performing Organization Address [facility] [place] [address], [facility] [phone] * Lipid Profile (08/21/2016 9:31 AM MULTILITH OPERATOR) Cholesterol 171 <200 mg/dL [facility] A Triglycerides 110 <150 mg/dL [facility] A Comment:Fasting specimen HDL Cholesterol 51 >49 mg/dL P [facility] A LDL Cholesterol Calculated 98 <100 mg/dL [facility] A Comment:Desirable: <100 mg/d l Non HDL Cholesterol 120 <130 mg/dL [facility] AT [facility] A Blood specimen (specimen) 08/21/2016 9:31 AM MULTILITH OPERATOR 08/21/2016 9:32 AM MULTILITH OPERATOR us Gerry Hoskins MD LAB - BLOOD ORDERABLES Final Result [facility] [address] [place] [address] from Last 3 Months or Most Recently Relevant to Health Maintenance Insurance [facility] Care Teams Certified First Assistant Relationship Specialty Start Date End Date Damir Powell MD [facility] [address] [place], [place] [phone] PCP - General Internal Medicine 06/02/16
--- OUTSIDE RECORDS SUMMARY | 2024-09-05 09:15 | XMS_ITS | Clinical Summary ---
Author Organization [facility] Address [address] [place] [address] Care Team Providers Care Sweat Band Separator Name Role Phone Damir Powell MD Primary [...] daily Active calcium carbonate (OS-ARMANDO 500 MG [place]. [place]) 500 MG tablet Take 500 mg [...] Sex Assigned at Female 11/06/2020 8:46 AM SENIOR INDUSTRIAL ENGINEER Legal Sex Female 3:28 AM SENIOR INDUSTRIAL ENGINEER Gender Identity Female 11/06/2020 8:46 AM SENIOR INDUSTRIAL ENGINEER Sexual Orientation Not on file Last Filed [...] REVIEW OF HM ORDERS 1945 DEXA 1945 FALL RISK ASSESSMENT 2009 DTAP/TDAP/TD IMMUNIZATION (1 - Tdap) 07/06/2012 07/05/2012, 01/11/2003 LIPID 08/21/2017 08/21/2016, 07/03/2015 TSH W/FREE T4 REFLEX 11/20/2017 11/20/2016, 07/03/20 15 RSV VACCINE (1 - 1-dose 75+ series) 2019 GLUCOSE 11/20/2019 11/20/2016, 07/03/2015 PHQ-2 (once per calendar year) 2023 COVID-19 Vaccine (2023- season) 2024 11/30/2020, 11/09/2020 INFLUENZA VACCINE (#1) [...] Diagnosis Comments GLUCOSE Routine 11/20/2016 8:37 AM SENIOR INDUSTRIAL ENGINEER Fatigue TSH Routine 11/20/2016 8:37 AM SENIOR INDUSTRIAL ENGINEER Fatigue LIPID PROFILE Routine 08/21/2016 9:31 AM SENIOR INDUSTRIAL ENGINEER Hyperlipidemia LDL goal <100 from Last 3 Months or Most Recently Relevant to Health Maintenance Results * TSH (11/20/2016 8:37 AM SENIOR INDUSTRIAL ENGINEER) TSH 0.43 0.40 - 4.00 mU/L [facility] Blood specimen (specimen) 11/20/2016 8:37 AM SENIOR INDUSTRIAL ENGINEER 11/20/2016 8:46 AM SENIOR INDUSTRIAL ENGINEER us Kadi Angulo MD LAB - BLOOD ORDERABLES Final R esult [facility] [address] [place] [address], [facility] [phone] * (ABNORMAL) Glucose (11/20/2016 8:37 AM SENIOR INDUSTRIAL ENGINEER) Glucose 111(H) 70 - 99 mg/dL [facility] Blood specimen (specimen) 11/20/2016 8:37 AM SENIOR INDUSTRIAL ENGINEER 11/20/2016 8:46 AM SENIOR INDUSTRIAL ENGINEER us Kadi Angulo MD LAB - BLOOD ORDERABLES Final R esult Performing Organization Address [facility]/ZIP Co de Phone Number [facility] [address] [phone] * Lipid Profile (08/21/2016 9:31 AM SENIOR INDUSTRIAL ENGINEER) Cholesterol 171 <200 mg/dL [facility] Triglycerides 110 <150 mg/dL [facility] A Comment:Fasting specimen HDL Cholesterol 51 >49 mg/dL [facility] LDL Cholesterol Calculated 98 <100 mg/dL [facility] A Comment:Desirable: <100 mg/d l Non HDL Cholesterol 120 <130 mg/dL [facility] Blood specimen (specimen) 08/21/2016 9:31 AM SENIOR INDUSTRIAL ENGINEER 08/21/2016 9:32 AM SENIOR INDUSTRIAL ENGINEER us Gerry Hoskins MD LAB - BLOOD ORDERABLES Final Result [facility] [address] [place] [address] from Last 3 Months or Most Recently Relevant to Health Maintenance Insurance [facility] [employer] [place] [employer] Care Teams Sweat Band Separator Relationship Specialty Start Date End Date Damir Powell MD [facility] [address] [place] [address] PCP - General Internal Medicine 06/02/16
--- OUTSIDE RECORDS SUMMARY | 2024-09-05 09:15 | XMS_ITS | Clinical Summary ---
Author Organization [facility] [employer] Address [place], [place] [address] Care Team Providers Care Engineer Fishing Vessel Name Role Phone Kamilla Rodriguez RN, BSN Unavailable [phone] Royce Moy MD Primary Care Provider + Nam Samaniego MD Unavailable [phone] Allergies Active Allergy Reactions Criticality Noted Date [...] 10 mg by mouth once daily. Active anastrozole (ARIMIDEX) 1 mg tabletIndications: Malignant neoplasm of upper-outer quadrant of left breast in female, estrogen receptor positive (HC) TAKE 1 TABLET EVERY DAY 90 Tablet 3 01/23/2023 Active CPAPIndications:OS A (obstructive sleep apnea) CPAP machine for home use at pressure 9 cmw, nasal mask x1/3month with nasal pillows x 2/mo 1 Each 11 08/06/2023 Active Active Problems Problem Noted Date Diagnosed Date Malignant neoplasm of upper- outer quadrant of left breast in female, estrogen receptor positive 07/02/2021 Cancer Staging:Clinical:Stage IA(cT1, cN0, cM0, G2, ER+, UT+, HER2: Equivocal) - Signed by Bianka Aguilar MD on 07/02/2021 Pathologic stage from 08/20/2021:Stage IA(pT1c, pN0(sn), cM0, G2, ER+, UT+, HER2: Equivocal) - Signed by Liz Salter [...] Encounters Date Type Department Care Team Description 07/28/2024 10:00 AM CDT Office Visit [facility] [address] [place] [address] Joss Pang MD Follow Up 07/28/2024 9:03 AM CDT - 07/28/2024 11:59 PM CDT Hospital Encounter [facility] [address] [place] [address] Joss Pang MD Malignant neoplasm of upper-outer quadrant of left breast in female, estrogen receptor positive (HC) 07/28/2024 Travel 07/23/2024 Travel from Last 3 Months Immunizations Name [...] pur e alcohol) occasional 1-2 times monthly Financial Resource Strain Answer Date R ecorded Difficulty of Paying Living Expenses Not on file 10/05/2021 Difficulty of Paying Living Expenses Not on file 10/05/2021 Sex and Gender Information Value Date Recorded Sex Assigned at Not on file Gender Identity Not on file Sexual Orientation Not on file Obstetrics History Last Filed Vital Signs Vital Sign Reading Time Taken Comments Blood Pressure 145/70 07/28/2024 9:45 AM CDT Pulse 86 07/28/2024 9:45 AM CDT Temperature 36.6 C (97.9 F) 12/03/2023 10:00 AM PRINCIPAL ARCHAEOLOGIST Respiratory Rate 18 12/03/2023 10:00 AM PRINCIPAL ARCHAEOLOGIST Oxygen Saturation 95% 07/28/2024 9:45 AM CDT Inhaled Oxygen Concentration - - Weight 98 kg (216 lb 1.6 oz) 07/28/2024 9:45 AM CDT Height 162.6 cm (5' 4) 08/06/2023 11:25 AM CDT Body Mass Index 37.09 08/06/2023 11:25 AM CDT Plan of Treatment Upcoming Encounters Date Type Department Care Team (Late st Contact Info) Description 09/06/2024 1:00 PM PRINCIPAL ARCHAEOLOGIST Office Visit [facility] [address] [place] [address] Enrike Alexander MD [address] [place] [address] Health Maintenance Due Date Last Done Comments Tdap 1955 Depression screening for age 12+ 1956 Zoster (shingles) series for age 50+ (1 of 2) 1963 Pneumococcal series for age 65+ (2 of 2 - PCV) 06/04/2007 06/04/2006 Medicare Wellness for age 65+ 2009 Tetanus booster 01/11/2013 01/11/2003 RSV vaccine for adults or (1 - 1-dose 75+ series) 2019 Influenza for age 65+ 06/05/2024 07/26/2008, 007 BMI (ht and wt on same day) for age 18+ 08/06/2024 08/06/2023, 06/24/2023, 06/03/2023, Additional history exists COVID-19 vaccine series ( season) 2024 07/07/2024, 06/27/2023, 07/31/2022, Additional history exists DEXA/DXA scan for age 65+ Completed 2022, 09/12/2021, 08/10/2008 Procedures Procedure Name Priority Date/Time Associated Diagnosis Comments XR MAMMO GEN BILAT SCREEN Routine 07/28/2024 9:18 AM CDT Malignant neoplasm of upper-outer quadrant of left breast in female, estrogen receptor positive (HC) XR DXA BONE DENSITY 2 SITES AXIAL Routine 09/07/2023 10:42 AM PRINCIPAL ARCHAEOLOGIST Malignant neoplasm of upper-outer quadrant of left breast in female, estrogen receptor positive (HC) from Last 3 Months or Most Recently Relevant to Health Maintenance Results * XR MAMMO GEN BILAT SCREEN (07/28/2024 9:18 AM CDT) Anatomical Region Laterality Modality BREASTS, Breast Left, Breast Right Bilateral Mammography Impressions 07/29/2024 7:45 AM CDT There is no radiographic evidence for malignancy. Recommend annual mammograms. MAMMOGRAM ASSESSMENT: ACR 2 Benign PATIENTS: You will also receive a letter with your examination results in an easy to read format. If you have questions about your results, please contact your referring provider. Narrative 07/29/2024 7:45 AM CDT For Patients: As a result of the Cures Act, medical imaging exams and procedure reports are released immediately into your electronic medical record. You may view this report before your referring provider. If you have questions, please contact your health care provider. XR MAMMO GEN BILAT SCREEN [[id number]] CLINICAL HISTORY: This is an asymptomatic 79 y.o. patient. INDICATION FOR EXAM: Mammogram Screening. TECHNIQUE: CC & MLO views were obtained. This study was evaluated with the assistance of Computer-Aided Detection. Breast Tomosynthesis was used in interpretation. COMPARISON FILMS: Yes 06/16/23 [employer] FINDINGS: The breasts are heterogeneously dense, which may obscure small masses. No suspicious masses or microcalcifications. There are post surgical changes of right breast and There are post treatment changes of left breast. Joss Pang MD MAMMO * XR DXA BONE DENSITY 2 SITES AXIAL (09/07/2023 10:42 AM PRINCIPAL ARCHAEOLOGIST) Anatomical Region Laterality Modality Spine, HIPS, HIPL, HIPR Other Impressions 09/14/2023 7:47 AM PRINCIPAL ARCHAEOLOGIST Normal bone density. RECOMMENDATIONS: The National Osteoporosis [...] recommended in 3-5 years. Teri Busch PA-C [employer] [facility] 09/14/2023 Narrative 09/14/2023 7:47 AM PRINCIPAL ARCHAEOLOGIST For Patients: Results are automatically released to your [employer] ([employer] in [place]) account once available, in compliance with federal regulations. This means that you may see your results before your provider has had a chance to review them. Please allow 2-3 business days for your provider to comment on the results. XR DXA Bone Mineral Density (BMD) EXAM LOCATION: [facility] [address] [facility] [address] PATIENT NAME: Aura Wilson DATE OF : 1945 EXAM DATE: 09/07/2023 REQUESTING PROVIDER: oJss Pang MD GENDER AT : female HEIGHT: 5' 4 (08/06/2023) WEIGHT: 210 lb (08/06/2023) MENOPAUSAL STATUS: Postmenopausal RACE/ETHNICITY: White RISK FACTORS: Aromatase Inhibitors (Arimidex, etc.) CURRENT MEDICATION FOR BONE LOSS: NONE INDICATION: malignant neoplasm of upper-outer quadrant of left breast in female, estrogen receptor positive COMPARISON DATE(S): 2007 DXA scans are compared to prior studies for a patient only when the two (or more) studies were performed on the same scanner. It is not possible to compare data generated on one scanner to data from another because there are not standards in DXA equipment. This applies even if the two scanners are made by the same hand crocheter. PROCEDURE: Dual-energy x-ray absorptiometry performed with routine [...] + 1.6 Change from prior in 2007: Decrease 0.6%. RESULTS FEMUR Left femoral neck BMD: 0.954 g/cm2 T-Score: - 0.6 Z-Score: + 0.8 Change from prior in 2007: Decrease 15.4%. Right femoral neck BMD: 1.060 g/cm2 T-Score: + 0.2 Z-Score: + 1.6 Change from prior in 2007: Decrease 6.3%. Left hip BMD: 1.092 g/cm2 T-Score: + 0.7 Z-Score: + 1.9 Change from prior in 2007: Decrease 10.1%. Right hip BMD: 1.153 g/cm2 T-Score: + 1.2 Z-Score: + 2.3 Change from prior in 2007: Decrease 6.4%. WHO criteria: Normal: T-score at or [...] Code Status Discussion: Not Discussed Care Teams Engineer Fishing Vessel Relationship Specialty Start Date End Date Royce Moy MD [address] [place] [address] PCP - General Family Practice 07/08/21 Kamilla Rodriguez RN, BSN [address] [place] [address] Nurse Navigator Oncology 06/25/21 Nam Samaniego [place] [address] Radiation Oncologist Internal Medicine 08/06/21
== END 2024-09-05 09:11 | disposition home or self-care (01) ==
PROVIDERS: PCP Family Medicine; Visit Provider Family Medicine
DX: D64.9 Anemia, unspecified (principal); E78.2 Mixed hyperlipidemia; E03.9 Hypothyroidism, unspecified; I10 Essential (primary) hypertension
CPT/HCPCS: 80061; 84443; 84460; 85025

== ENCOUNTER 2025-04-25 11:39 | Outpatient (CLI) | payer MEDICARE, BC, SELFPAY | END 2025-04-25 11:40 | disposition home or self-care (01) | PROVIDERS: PCP Family Medicine; Visit Provider Family Medicine | DX: E03.9 Hypothyroidism, unspecified (principal); I10 Essential (primary) hypertension; E55.9 Vitamin D deficiency, unspecified; Z01.818 Encounter for other preprocedural examination | CPT/HCPCS: 80048; 84439; 84443; 85025 ==

== ENCOUNTER 2025-07-04 08:15 | Outpatient (RCR) | payer MEDICARE, BC, SELFPAY ==
--- NOTE | 2025-05-30 15:49 | PT.OPEX ---
PT [place] Outpatient Eval PT [facility] Outpatient Eval Start: 05/30/25 08:28 Freq: Status: Active Protocol: Document 05/30/25 08:28 SUNG (Rec: 05/30/25 15:49 SUNG [id number]) E-signed By Lala Marie PT Physical Therapy Outpatient Evaluation Insurance Information Recert Due Date 08/27/25 Insurance Name Medicare B Medical Diagnosis RIGHT SHOULDER OA RIGHT SHOULDER RTC COMPRIMISE Treating Diagnosis RIGHT SHOULDER PAIN RIGHT SHOULDER WEAKNESS RIGHT SHOULDER STIFFNESS Imaging Report XRAY: moderate-severe osteoarthrosis glenohumeral joint Information seen best on the axillary lateral view. This shows 80 +% joint space narrowing. Referring MD CHAUDHARI Subjective Subjective PATIENT REPORTS A GRADUAL ONSET BEGINNING ROUGHLY 6 WEEKS AGO. SHE NOTICED PAIN WITH REACHING INTO HER CUPBOARD, PUTTING HER BRA ON AND WAKING IN THE NIGHT WITH PAIN. SHE HAS USED TYLENOL BUT NO SIGNIFICANT RELIEF. SHE IS HOPING TO MANAGE HER PAIN BETTER, STRENGTHEN HER SHOULDER, AND AVOID ANY SURGERY. Pain Comments SHARP, ACHY, INTERMITTENT THAT IS WORSE AT END OF DAY Date of Last 05/23/25 Physician Visit Current Work Status Retired Occupation RETIRED Precautions Treatment PMHX: LEFT AND RIGHT BREAST MALIGNANT NEOPLASM (2020), HTN, HLD, Precautions/ HYPOTHYROIDISM, RECENT CATARACT SX 05/15 AND 05/22, Contraindications DEPRESSION, SABRINA, OA RIGHT HIP WITH TENONITIS, H/O LEFT TKA 2018, RIGHT TKA 2018, AND ASTHMA Therapy Limitations/ Not Limited Systems Review Objective Functional Test Assessment Assessment/ AURORA IS A [place] 79-YEAR-OLD FEMALE REFERRED BY DR Pierre CHAUDHARI FOR EVALUATION AND TREATMENT OF RIGHT SHOULDER PAIN. RADIOGRAPHIC IMAGING REVEALS MODERATE TO SEVERE GLENOHUMERAL OSTEOARTHRITIS WITH APPROXIMATELY 80% JOINT SPACE NARROWING. -CLINICAL EXAMINATION DEMONSTRATES POSITIVE PAINFUL ARC SIGN, POSITIVE RAYMUNDO-JAMIR IMPINGEMENT TEST, AND POSITIVE EMPTY CAN TEST. PATIENT REPORTS SHARP PAIN WITH ACTIVE REACHING MOVEMENTS LATERALLY, ANTERIORLY BEYOND 80 DEGREES, AND POSTERIORLY BEHIND THE BACK. THESE MOVEMENT RESTRICTIONS SIGNIFICANTLY LIMIT HER ABILITY TO PERFORM BASIC SELF-CARE TASKS INCLUDING BATHING, DRESSING, AND OTHER ACTIVITIES OF DAILY LIVING INVOLVING THE RIGHT UPPER EXTREMITY. -ACTIVE RANGE OF MOTION (AROM) IS FOLLOWS: FLEXION 100?, ABDUCTION 92?, EXTERNAL ROTATION 56?, INTERNAL ROTATION TO L1 (T6 ON LEFT). PASSIVE RANGE OF MOTION ( PROM) IN SCAPTION AT 45 DEGREES INCLUDES: FLEXION 152?, ABDUCTION 134?, EXTERNAL ROTATION 64?, INTERNAL ROTATION 42?. THESE FINDINGS CONTRIBUTE TO THE OVERALL CLINICAL IMPRESSION OF SHOULDER DYSFUNCTION SECONDARY TO OSTEOARTHRITIS AND POSSIBLE ROTATOR CUFF INVOLVEMENT . -PATIENT IS DEEMED AN APPROPRIATE CANDIDATE FOR SKILLED PHYSICAL THERAPY TO ADDRESS THE ABOVE-MENTIONED DEFICITS WITH THE GOAL OF RETURNING TO AN ASYMPTOMATIC STATUS AND UNRESTRICTED FUNCTIONAL MOVEMENT. -RECOMMENDED INTERVENTIONS INCLUDE: THERAPEUTIC EXERCISE MANUAL THERAPY NEUROMUSCULAR RE-EDUCATION STABILIZATION AND PROPRIOCEPTIVE TRAINING MODALITIES FOR SYMPTOM MANAGEMENT PATIENT EDUCATION DRY NEEDLING INDICATED -PLEASE REFER TO THE APPROPRIATE SECTION WITHIN THIS EVALUATION FOR A COMPLETE LIST OF GOALS AND PLAN OF CARE. -DISCHARGE CRITERIA WILL BE BASED ON ACHIEVEMENT OF ESTABLISHED GOALS OR UPON REACHING MAXIMAL FUNCTIONAL POTENTIAL. PATIENT VERBALIZED UNDERSTANDING OF AND AGREEMENT WITH THE PLAN OF CARE, FREQUENCY OF TREATMENT , AND THERAPEUTIC GOALS. Primary Functional REACHING, CARRYING, LIFTING, ADL'S Limitations Plan of Care Rehabilitation Good Potential Physical Therapy IN 6-10 VISITS: Goals 1. DECREASE SHOULDER PAIN TO </2-3/10 WITH DAILY ACTIVITIES AND WITH THE PROGRESSION OF HER HEP OVER THE NEXT 4 WEEKS. 2. DEMONSTRATE PAIN FREE AROM OVER THE NEXT 4-6 WEEKS DURING DAILY ACTIVITIES WITHOUT FLARE UPS OF SYMPTOMS. 3. PATIENT WILL VERBALIZED UNDERSTANDING OF POSTURING AND BODY MECHANICS IT RELATES TO DECREASING STRESS, IMPROVED SHOULDER MECHANICS, AND DECREASED SYMPTOMS. 4.PATIENT WILL DEMONSTRATES IMPROVED STRENGTH TO FACILITATE RETURN TO DAILY ACTIVITIES WITH LESS SYMPTOMS AND DECREASED OPPORTUNITIES FOR FLARE UP OF PAIN 5. PATIENT WILL BE INDEPENDENT WITH HER INDIVIDUALIZED AND COMPREHENSIVE HEP WITHIN THE NEXT 6-8 WEEKS FOR PROGRESSION TWD ABOVE MENTION GOALS, CONTINUED MGMT OF SYMPTOMS, AND ONGOING SELF IMPROVEMENTS IN POSTURING/ STRENGTH/STABILIZATION. Coordination/ Referral Source Communication With Treatment Plan/ Electrical Stimulation,Ice/Cold/Vasopneumatic,Joint Direct Interventions Mobilization,Self-Care/Home Management,Therapeutic Activities,Therapeutic Exercises,Ultrasound Frequency/Duration 1X/WK Patient Will Be Completion of LTG(s),Independent w/HEP Discharged From Therapy Evaluation Billing Untimed Code 20 Treatment Minutes PT Eval No Charge No Complexity Low Certification Information Initial 05/30/25 Certification Date Ending Certification 08/27/25 Date Provider Signature Yes Required Provider Signature POC & Medical Necessity Shows Agreement With Physician NPI Number Write NPI# Here Physician Comment/ : Change Physician Signature Please Sign/Date Here & Date Requested
== END 2025-07-31 13:18 | disposition home or self-care (01) ==
PROVIDERS: PCP Family Medicine; Visit Provider Orthopaedic Surgery Sports Medicine
DX: M19.011 Primary osteoarthritis, right shoulder (principal); M75.101 Unspecified rotator cuff tear or rupture of right shoulder, not specified as traumatic; Z51.89 Encounter for other specified aftercare
CPT/HCPCS: 97110; 97140; 97161

== ENCOUNTER 2025-07-13 10:51 | Emergency (ER) | payer MEDICARE, BC, SELFPAY ==
[2025-07-13] VITALS (18 sets, daily range): BP systolic 152–210; BP diastolic 78–110; PULSE 66–88; RESP 11–26; TEMP 36.3; O2SAT 95–99; BMI 33.3
--- NOTE | 2025-07-13 11:01 | CRLHL7_ITS ---
For Patients: As a result of the Cures Act, medical imaging exams and procedure reports are released immediately into your electronic medical record. You may view this report before your referring provider. If you have questions, please contact your health care provider. INDICATION: Fall, head trauma, altered mental status. COMPARISON: 11/06/2023 TECHNIQUE: CT of the brain / head without intravenous contrast. Multiplanar axial, coronal, and sagittal reformats were reconstructed. FINDINGS: No intracranial hemorrhage. Mild age-related parenchymal volume loss. No acute or subacute cortically based infarct. Ex vacuo dilatation of the ventricles. Stable partially calcified extra-axial mass near the right parietal vertex. No intra-axial mass or mass effect. No skull fractures. No worrisome focal bone lesion. There are acute bilateral nasal bone fractures with deviation to the left. Of note there was a prior left-sided nasal bone fracture. Chronic left maxillary sinusitis. No orbital fracture or globe injury. IMPRESSION: 1. Acute on chronic nasal bone fractures. 2. No acute intracranial findings. No intracranial hemorrhage. Please note that all CT scans at this facility use dose modulation, iterative reconstruction, and/or weight-based dosing when appropriate to reduce radiation dose to as low as reasonably achievable. Dictated by Selin Elliott MD @ 07/13/2025 11:40:13 AM (Electronically Signed)
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
--- NOTE | 2025-07-13 11:09 | CRLHL7_ITS ---
For Patients: As a result of the Century Cures Act, medical imaging exams and procedure reports are released immediately into your electronic medical record. You may view this report before your referring provider. If you have questions, please contact your health care provider. INDICATION: Fall, head injury, facial injury. COMPARISON: Same-day head CT prior CT head 11/06/2023 TECHNIQUE: CT of the facial bones without contrast. Multiplanar axial, coronal, and sagittal reformats were reconstructed. Contrast: None. FINDINGS: BONES: Bilateral nasal bone fractures are mildly depressed and displaced towards the left. Of note this is a superimposed fracture on a pre-existing left-sided nasal bone fracture. No other facial bone fractures. No focal bone lesions. Normal temporomandibular joint alignment. ORBITS AND GLOBES: Right eye: Normal shape and position of globe. The lens is orthotopically located. No retrobulbar hematoma. The extraocular muscles have a normal course and caliber without signs of entrapment. Left eye: Normal shape and position of globe. The lens is orthotopically located. No retrobulbar hematoma. The extraocular muscles have a normal course and caliber without signs of entrapment. TEMPORAL BONES: Mastoids and middle ears are clear. PARANASAL SINUS: Chronic left maxillary sinusitis. Left maxillary antrostomy. Nasal septum is deviated towards the right. No nasal septal fracture. SOFT TISSUES: Soft tissue swelling over the nasal bridge and central lower forehead. No soft tissue mass. No foreign body. Normal appearance of the parotid and salivary glands. DENTITION: Extensive dental amalgam with streak artifact. IMPRESSION: Acute on chronic bilateral nasal bone fractures. Please note that all CT scans at this facility use dose modulation, iterative reconstruction, and/or weight-based dosing when appropriate to reduce radiation dose to as low as reasonably achievable. Dictated by Selin Elliott MD @ 07/13/2025 11:42:27 AM (Electronically Signed)
[2025-07-13 11:22] LABS: Troponin, Point-of-Care* 0.01 ng/ml (0.01-0.04)
[2025-07-13] MEDS: ACETAMINOPHEN 500 MG TABLET 1000 MG PO (11:36)
== END 2025-07-13 13:10 | disposition home or self-care (01) ==
PROVIDERS: Emergency Provider Family Medicine; PCP Family Medicine
DX: S02.2XXA Fracture of nasal bones, initial encounter for closed fracture (principal); S06.0X1A Concussion with loss of consciousness of 30 minutes or less, initial encounter; W18.30XA Fall on same level, unspecified, initial encounter; W54.1XXA Struck by dog, initial encounter
CPT/HCPCS: 36415; 70450; 70486; 84484; 93005; 99284; 99285; 99291; A9270; J7030

== ENCOUNTER 2025-09-18 09:44 | Outpatient (CLI) | payer MEDICARE, BC, SELFPAY | END 2025-09-18 09:45 | disposition home or self-care (01) | PROVIDERS: PCP Family Medicine; Visit Provider Family Medicine | DX: E78.2 Mixed hyperlipidemia (principal); I10 Essential (primary) hypertension; E03.9 Hypothyroidism, unspecified; E66.9 Obesity, unspecified; Z68.35 Body mass index [BMI] 35.0-35.9, adult | CPT/HCPCS: 80048; 80061; 84439; 84443; 84460; 85025 ==